=== PATIENT | female | born 1940 | race Caucasian/White ===

== ENCOUNTER 2019-01-19 14:27 | Inpatient (IN) | payer MEDICARE, BC ==
[~2019-01-19] VITALS: Ht 160 cm; Wt 73.5 kg
[~2019-01-19 14:27] MED LIST: APAP500 PO; ASPIR 8181 M1 PO; LOSARTAN POTAS100 MG PO; SIMVASTATIN40 MG PO; ZIAC 5-6.25 MG1 EACH PO
[2019-01-19 14:38] VITALS: BP 217/93
[2019-01-19 15:21] LABS: ABSOLUTE BASOPHILS 0.1 thou/uL (0.0-0.2); ABSOLUTE EOSINOPHILS 0.2 thou/uL (0.0-0.7); ABSOLUTE LYMPHOCYTES 1.7 thou/uL (0.8-5.3); ABSOLUTE MONOCYTES 0.5 thou/uL (0.0-1.2); ABSOLUTE NEUTROPHILS 4.6 thou/uL (1.6-8.1); EOSINOPHILS 2.7 %; HEMATOCRIT 36.1 % (37.0-47.0); HEMOGLOBIN 12.3 gm/dL (12.0-15.0); LYMPHOCYTES 24.2 %; MCH 32.6 pg (26.0-34.0); MCV 95.9 fL (80.0-100.0); MONOCYTES 6.7 %; MPV 9.1 fl. (7.2-11.1); NUCLEATED RBCS 0 /100WBC; PLATELET COUNT* 175 thou/uL (150-400); POLYS 65.4 %; RBC 3.77 mil/uL (4.20-5.00); RDW-CV 13.1 % (10.5-14.5); WBC 7.1 thou/uL (4.0-11.0)
[2019-01-19 15:25] LABS: APTT 21.7 Seconds (25.0-31.3); PROTIME 10.2 Seconds (9.20-11.50)
[2019-01-19 15:31] LABS: CALCIUM 9.8 mg/dL (8.5-10.1); CREATININE 1.3 mg/dL (0.6-1.3); POTASSIUM 4.3 mmol/L (3.5-5.1)
[2019-01-19 15:41] LABS: ALBUMIN 4.1 g/dL (3.4-5.0); TOTAL BILIRUBIN 0.4 mg/dL (<0.1-1.0); TOTAL PROTEIN 7.4 g/dL (6.4-8.2)
[2019-01-19 16:47] VITALS: BP 170/65
[2019-01-19 17:10] VITALS: BP 175/70
[2019-01-19 20:00] VITALS: BP 101/46
[2019-01-20] VITALS (14 sets, daily range): BP systolic 93–183; BP diastolic 41–77
[2019-01-20 04:48] LABS: CHOLESTEROL 158 mg/dL (<200); HDL CHOLESTEROL 79 mg/dL (>40); MAGNESIUM 1.8 mg/dL (1.8-2.4); PHOSPHORUS* 3.9 mg/dL (2.5-4.9)
[2019-01-20 04:51] LABS: SERUM ASSESSMENT CLEAR
[2019-01-20 05:57] LABS: LDL CHOLESTEROL 66 mg/dL (<100); TRIGLYCERIDE 68 mg/dL (<150); VLDL 14 mg/dL (<40)
[2019-01-20] MEDS ORDERED: NITROGLYCERIN0.4 MG SUBLING (14:51)
[2019-01-20] MEDS ORDERED: HYDROCHLOROTHIA25 M1 PO (14:52)
--- NOTE | 2019-01-20 17:04 | EKG ---
[place] [address] ELECTROCARDIOGRAM REPORT Name: JACIEL FLORES Room: [address] ADM IN M.R.#: [id number] Admission: 01/19/19 Attend Phys: Ana Lilia Asif Discharge: Date of : 40 Report #: [id number] THIS REPORT FOR: //name// [facility] ED Test Date: 2019-01-19 Test Time: 14:40:34 Pat Name: JACIEL FLORES Department: Room: [facility] Gender: F Security Threat Analyst: FELICITA : 1940 Requested By: Luiz Howard Order Number: [id number] MD: Chace Dacosta Measurements Intervals [place] Rate: 68 P: 74 MD: 216 QRS: -40 QRSD: 112 T: 51 QT: 385 QTc: 410 Interpretive Statements Sinus rhythm Atrial premature complex Borderline prolonged MD interval Left anterior fascicular block Abnormal R-wave progression, late transition Left ventricular hypertrophy No previous ECG available for comparison Electronically Signed On 01-20-2019 17:04:34 SALESPERSON HEARING AIDS by Chace Dacosta [email or web address] <ELECTRONICALLY SIGNED> By: Chace Dacosta MD, FACC 01/20/19 1704 1440 1440 Chace Dacosta MD, FAC /EPI
[2019-01-20 23:06] LABS: GLYCOHEMOGLOBIN (HGB A1C) 5.2 % (4.8-5.6)
[2019-01-21] VITALS (13 sets, daily range): BP systolic 84–159; BP diastolic 39–71
[2019-01-21 04:55] LABS: ABSOLUTE EOSINOPHILS 0.1 thou/uL (0.0-0.7); ABSOLUTE LYMPHOCYTES 1.9 thou/uL (0.8-5.3); ABSOLUTE MONOCYTES 0.5 thou/uL (0.0-1.2); ABSOLUTE NEUTROPHILS 5.5 thou/uL (1.6-8.1); BASOPHILS 0.4 %; EOSINOPHILS 1.2 %; HEMATOCRIT 30.7 % (37.0-47.0); LYMPHOCYTES 23.9 %; MCH 32.7 pg (26.0-34.0); MCHC 33.5 g/dL (28.0-37.0); MCV 97.7 fL (80.0-100.0); MONOCYTES 6.7 %; MPV 8.8 fl. (7.2-11.1); NUCLEATED RBCS 0 /100WBC; PLATELET COUNT* 147 thou/uL (150-400); POLYS 67.8 %; RBC 3.15 mil/uL (4.20-5.00); RDW-CV 13.3 % (10.5-14.5)
[2019-01-21 05:03] LABS: HEMOGLOBIN 10.3 gm/dL (12.0-15.0)
[2019-01-21 05:19] LABS: POTASSIUM 3.7 mmol/L (3.5-5.1)
--- NOTE | 2019-01-21 09:33 | EKG ---
[place] [address] ELECTROCARDIOGRAM REPORT Name: JACIEL FLORES Room: [address] ADM IN M.R.#: [id number] Admission: 01/20/19 Attend Phys: Ana Lilia Asif Discharge: Date of : 40 Report #: [id number] THIS REPORT FOR: //name// [facility] Test Date: 2019-01-20 Test Time: 20:23:43 Pat Name: JACIEL FLORES Department: Room: [address] Gender: F Substance Abuse Therapist: TONNY : 1940 Requested By: Ana Lilia Enriquez Order Number: [id number] Kun MD: Laz Newby Measurements Intervals [place] Rate: 71 P: 70 [place]: 206 QRS: -48 QRSD: 108 T: 1 QT: 398 QTc: 433 Interpretive Statements Sinus rhythm Left anterior fascicular block Abnormal R-wave progression, late transition Borderline T abnormalities, anterior leads Compared to ECG 01/19/2019 14:40:34 T-wave abnormality now present Atrial premature complex(es) no longer present Electronically Signed On 01-21-2019 9:33:11 BACK LINE COOK by Laz Newby [email or web address] <ELECTRONICALLY SIGNED> By: Laz Newby MD, FACC 01/21/19932 22 22 Laz Newby MD, FACC /EPI
--- NOTE | 2019-01-21 17:11 | EKG ---
[place] [address] ELECTROCARDIOGRAM REPORT Name: JACIEL FLORES Room: [address] ADM IN M.R.#: [id number] Admission: 01/20/19 Attend Phys: Ana Lilia Asif Discharge: Date of : 40 Report #: [id number] THIS REPORT FOR: //name// [facility] Test Date: 2019-01-21 Test Time: 11:36:26 Pat Name: JACIEL FLORES Department: Room: [address] Gender: F Service Observer Chief: RT : 1940 Requested By: Pedro Friedman Order Number: [id number] Kun MD: Laz Newby Measurements Intervals [place] Rate: 69 P: 74 [place]: 224 QRS: -47 QRSD: 111 T: 71 QT: 401 QTc: 430 Interpretive Statements Sinus rhythm Prolonged WI interval Left anterior fascicular block Nonspecific T-wave inversion Compared to ECG 01/20/2019 20:23:43 First degree AV block now present Left ventricular hypertrophy now present Early repolarization now present Electronically Signed On 01-21-2019 17:11:03 CHIEF SUPPLY CHAIN OFFICER by Laz Newby [email or web address] <ELECTRONICALLY SIGNED> By: Laz Newby MD, FACC 01/21/19 1711 1136 1136 Laz Newby MD, FACC /EPI
[2019-01-22] VITALS: BP 124/50
[2019-01-22 04:27] LABS: HEMOGLOBIN 9.1 gm/dL (12.0-15.0); MCH 32.7 pg (26.0-34.0); MCHC 33.8 g/dL (28.0-37.0); MCV 96.6 fL (80.0-100.0); MPV 8.8 fl. (7.2-11.1); RBC 2.79 mil/uL (4.20-5.00); RDW-CV 13.1 % (10.5-14.5); WBC 7.4 thou/uL (4.0-11.0)
[2019-01-22 04:54] LABS: ALBUMIN 2.9 g/dL (3.4-5.0); CALCIUM 8.6 mg/dL (8.5-10.1); POTASSIUM 3.6 mmol/L (3.5-5.1); TOTAL BILIRUBIN 0.5 mg/dL (<0.1-1.0); TOTAL PROTEIN 5.5 g/dL (6.4-8.2); TROPONIN-I LEVEL 0.1 ng/mL (<0.06)
[2019-01-22 08:00] VITALS: BP 155/73
[2019-01-22] MEDS ORDERED: FELODIPINE 5 MG5 M1 PO (09:50)
[2019-01-22] MEDS ORDERED: BRILINTA90 MG PO ×2 (09:50→12:25)
[2019-01-22] MEDS ORDERED: LIPITOR40 MG PO (09:50)
[2019-01-22] MEDS ORDERED: ATENOLOL 50MG T50 M1 PO (09:50)
[2019-01-22 10:00] VITALS: BP 132/54
[2019-01-22 11:29] VITALS: BP 128/61
[2019-01-22] MEDS ORDERED: NORVASC5 M1 PO (12:24)
[2019-01-22 12:37] VITALS: BP 132/54
[2019-01-22 12:55] VITALS: BP 132/54
--- NOTE | 2019-01-22 13:47 | EKG ---
[place] [address] ELECTROCARDIOGRAM REPORT Name: JACIEL FLORES Room: [address] ADM IN M.R.#: [id number] Admission: 01/20/19 Attend Phys: Ana Lilia Asif Discharge: Date of : 40 Report #: [id number] THIS REPORT FOR: //name// [facility] Test Date: 2019-01-22 Test Time: 08:42:23 Pat Name: JACIEL FLORES Department: Room: [address] Gender: F Account Development Manager: : 1940 Requested By: Pedro Friedman Order Number: [id number] Kun MD: Pedro Friedman Measurements Intervals [place] Rate: 71 P: 4 [place]: 195 QRS: -46 QRSD: 109 T: -4 QT: 402 QTc: 437 Interpretive Statements Sinus rhythm Left anterior fascicular block Abnormal R-wave progression, early transition LVH with secondary repolarization abnormality Compared to ECG 01/21/2019 11:36:26 Left ventricular hypertrophy now present Early repolarization now present First degree AV block no longer present Electronically Signed On 01-22-2019 13:46:56 SURFACER OPERATOR by Pedro Friedman [email or web address] <ELECTRONICALLY SIGNED> By: Pedro Friedman MD, FACC 01/22/19 1346 0842 0842 Pedro Friedman MD, FAC /EPI
--- NOTE | 2019-01-22 14:29 | CARD ---
[address] [address] CARDIAC CATH REPORT Name: JACIEL FLORES Room: [address] IN M.R.#: [id number] Admission: 01/20/19 Attend Phys: Ana Lilia [place] Discharge: Date of : 40 Report #: [id number] THIS REPORT FOR: //name// APPROVED REPORT Study performed: 01/20/2019 14:40:25 Patient Details Patient Status: In-Patient Room #: 215 The patient is a 78 year-old female Event Personnel Nelson Parham RTR Monitor, Pedro Friedman Facing End Trimmer, Fiona Rodriguez RTR Scrub, Cindi Morse RN RN, Diya Acuna RN warehouse shift supervisor Performed Left Heart Cath w/or w/o Coronaries [id number] [facility] Hemostasis with Manual pressure Indication Unstable angina Risk Factors Hypercholesterolemia, Hypertension Admission/Lab Medications/Medications given during procedure Fentanyl IV 25 mcg, Midazolam (Versed) IV 1 mg, Lidocaine Subcut 20 ml, Hydralazine (Apresoline) IV 10 mg, Half Normal Saline IV 200 ml per hr Procedure Narrative The patient was brought electively to the Cardiac Catheterization Laboratory and was prepped and draped in a sterile manner. The right femoral was infiltrated with 2% Lidocaine subcutaneous anesthesia. A 6fr Ultimum Sheath sheath was inserted into the right femoral artery. Coronary angiography was performed using coronary diagnostic catheters. The right coronary system was accessed and visualized with a Diagnostic 6Fr JR 4 catheter. The left coronary system was accessed and visualized with a Diagnostic 6Fr JL 4 catheter. The left ventricle was accessed and visualized with a Diagnostic 6Fr Pigtail catheter. Left ventriculogram was performed in RANGEL projection. Hemostasis was obtained with manual pressure following sheath removal without any complications. The patient tolerated the procedure well and there were no complications associated with the procedure. There was no hematoma. Patient [place] [address] CARDIAC CATH REPORT Name: JACIEL FLORES Room: [address] IN ..#: [id number] Admission: 01/20/19 Attend Phys: Ana Lilia Asif Discharge: Date of : 40 Report #: [id number] administration a total of 20 mg of hydralazine, she developed hypotension which gradually resolved after infusion of significant amounts of crystalloid. It was elected to terminate the procedure at this point and proceed with intervention to the LAD at a later date. Intraoperative Conscious Sedation Fentanyl 25 mcg Versed 1 mg Fluoro Time: 5.0 minutes Dose: DAP 02697 cGycm2 425.78 mGy Contrast Type and Amount: Visipaque 80 ml Diagnostic Cath Left Main 0% narrowing LAD 80% focal mid LAD stenosis Circumflex Dominant vessel with 0% narrowing Right Coronary Small nondominant vessel with 40% proximal narrowing Hemodynamics The aortic pressure is 163/66 mmHg with a mean of 52 mmHg. The left ventricular pressure is 164/-3 mmHg with a mean of mmHg. The left ventricular end diastolic pressure is 5 mmHg. There was no gradient across the aortic valve upon pullback. Conclusion #1 significant single-vessel coronary artery disease characterized by the following: A 80% focal mid LAD stenosis #2 moderate systemic systolic hypertension #3 systemic pressure became significantly elevated; she was given 20 mg of hydralazine sequentially in two doses and subsequently developed significant hypotension requiring crystalloid infusion for anglican of normal hemodynamics. Recommendations [place] [address] CARDIAC CATH REPORT Name: JACIEL FLORES Room: [address] IN M.R.#: [id number] Admission: 01/20/19 Attend Phys: Ana Lilia Asif Discharge: Date of : 40 Report #: [id number] Diagnostic Cath Approved by: Pedro Friedman MD Date/Time: 01/22/2019 14:28:29 <ELECTRONICALLY SIGNED> By: Pedro Friedman MD, [facility] 01/22/19 1429 1429 1429Pedro Friedman MD, FACC /INF
--- NOTE | 2019-01-22 14:49 | CARD ---
[address] [address] CARDIAC CATH REPORT Name: JACIEL FLORES Room: [address] IN M.R.#: [id number] Admission: 01/20/19 Attend Phys: Ana Lilia lira tracy Maier Discharge: 01/22/19 Date of : 40 Report #: [id number] THIS REPORT FOR: //name// APPROVED REPORT Study performed: 01/21/2019 09:29:33 Patient Details The patient is a 78 year-old female Event Personnel Pedro Friedman Title I Director, Nelson Parham RTR Monitor, Cindi Morse RN RN, Diya Acuna RN RN, Karl Prasad SKATE SHOP ATTENDANT Scrub Procedures Performed GUIDO Place w/wo Plasty Single LAD [id number] Hemostasis w/ Angioseal Indication Unstable angina Risk Factors Hypercholesterolemia, Hypertension Admission/Lab Medications/Medications given during procedure Angiomax bolus and infusion Procedure Narrative The patient was brought electively to the Cardiac Catheterization Laboratory and was prepped and draped in a sterile manner. The left femoral was infiltrated with 2% Lidocaine subcutaneous anesthesia. A 6fr Sheath sheath was inserted into the RFA. Coronary angiography was performed using coronary diagnostic catheters. The left coronary system was accessed and visualized with a JL4 6fr catheter. Pre-demployment femoral angiogram was performed . Closure device was deployed with a 6 Fr Angioseal. The patient tolerated the procedure well and there were no complications associated with the procedure. There was no hematoma. Intraoperative Conscious Sedation Sedation start time: 1008 Case end Time: 104 Fentanyl 100 mcg Dose: 570.55 [place] [address] CARDIAC CATH REPORT Name: JACIEL FLORES Room: [address] IN [facility].#: [id number] Admission: 01/20/19 Attend Phys: Ana Lilia lira [place] Discharge: 01/22/19 Date of : 40 Report #: [id number] Contrast Type and Amount: Visipaque 190 ml Diagnostic Cath Left Main 0% narrowing LAD 80% focal mid LAD stenosis Circumflex 0% narrowing Right Coronary Small nondominant vessel with mild proximal narrowing as defined by prior angiogram Hemodynamics The aortic pressure is 175/71 mmHg with a mean of 112 mmHg. PCI Technique Lesion Anticoagulation was achieved with Angiomax. Patient was preloaded with Angiomax IV 11 ml. Percutaneous coronary intervention was performed on the mid left anterior descending artery segment. The lesion stenosis prior to intervention was 80% with HERO 3 flow. A 6F XB LAD 3.5 Guide Catheter was used to engage the ostium. A IG: BMW 190cm Interventional Guidewire was used to cross the lesion. BALLOON DILATION A Balloon catheter NC Trek RX 3.0 X 8 was inserted and inflated up to 18.00atm for 21seconds. Additional Inflation: 22.00atm for 5seconds. STENT DEPLOYMENT A stent Xience Yanna 3.04W99ke was inserted and inflated up to 15.00atm for 11seconds. Additional Inflation: 16.00atm for 7seconds. Final angiography reveals 0 % stenosis with HERO 3 flow. Conclusion #1 moderate systemic systolic hypertension #2 significant single-vessel coronary artery disease with 80% mid LAD stenosis #3 successful percutaneous coronary intervention with deployment of a drug-eluting stent at site of 80% mid LAD stenosis with 0% residual narrowing and HERO-3 flow the distal vessel Recommendations Cardiac Risk Reduction Program [place] [address] CARDIAC CATH REPORT Name: JACIEL FLORES Room: [address] IN .R.#: [id number] Admission: 01/20/19 Attend Phys: Ana Lilia [place] Discharge: 01/22/19 Date of : 40 Report #: [id number] Medications Administered Aspirin (any) Ticagrelor Diagnostic Cath Approved by: Pedro Friedman MD Date/Time: 01/22/2019 14:47:31 <ELECTRONICALLY SIGNED> By: Pedro Friedman MD, [facility] 01/22/19 1448 1448 1448Joleigh Friedman MD, FACC /INF
== END 2019-01-22 14:48 | disposition home or self-care (01) | DRG 247 ==
LOC: M.ERS 14:27 → M.2W 16:15 → M.TBA-ER 16:15 → M.2W 16:15
PROVIDERS: Internal Medicine; Nurse Practitioner Psychiatric/Mental Health; ADMIT Family Medicine
PROC: B211YZZ Fluoroscopy of Multiple Coronary Arteries using Other Contrast (ICD-10-PCS; principal; 2019-01-20)
PROC: 4A023N7 Measurement of Cardiac Sampling and Pressure, Left Heart, Percutaneous Approach (ICD-10-PCS; principal; 2019-01-20)
PROC: B215YZZ Fluoroscopy of Left Heart using Other Contrast (ICD-10-PCS; principal; 2019-01-20)
PROC: B211YZZ Fluoroscopy of Multiple Coronary Arteries using Other Contrast (ICD-10-PCS; 2019-01-21)
PROC: B41FYZZ Fluoroscopy of Right Lower Extremity Arteries using Other Contrast (ICD-10-PCS; 2019-01-21)
PROC: 027034Z Dilation of Coronary Artery, One Artery with Drug-eluting Intraluminal Device, Percutaneous Approach (ICD-10-PCS; 2019-01-21)
PROC: 4A023N7 Measurement of Cardiac Sampling and Pressure, Left Heart, Percutaneous Approach (ICD-10-PCS; 2019-01-21)
DX: I25.110 Atherosclerotic heart disease of native coronary artery with unstable angina pectoris (principal); I16.1 Hypertensive emergency; E44.1 Mild protein-calorie malnutrition; I10 Essential (primary) hypertension; M17.0 Bilateral primary osteoarthritis of knee; M19.042 Primary osteoarthritis, left hand; M19.041 Primary osteoarthritis, right hand; E78.5 Hyperlipidemia, unspecified; E03.9 Hypothyroidism, unspecified; G89.4 Chronic pain syndrome; M19.90 Unspecified osteoarthritis, unspecified site; Z85.3 Personal history of malignant neoplasm of breast; Z79.899 Other long term (current) drug therapy; Z68.28 Body mass index [BMI] 28.0-28.9, adult; Z90.49 Acquired absence of other specified parts of digestive tract; Z90.11 Acquired absence of right breast and nipple

== ENCOUNTER → 2019-02-24 | Outpatient (CLI) | payer MEDICARE, BC ==
[~2019-02-24] MED LIST changes: +ATENOLOL 50MG T50 M1 PO; +BRILINTA90 MG PO; +FELODIPINE 5 MG5 M1 PO; +HYDROCHLOROTHIA25 M1 PO; +LIPITOR40 MG PO; +NITROGLYCERIN0.4 MG SUBLING; +NORVASC5 M1 PO
--- NOTE | 2019-02-24 15:13 | 2DMMODE ---
[place] [address] 2 D/M-MODE ECHOCARDIOGRAM Name: JACIEL FLORES Room: [facility]#: [id number] Admission: 02/24/19 Attend Phys: Vanita Jules RN Discharge: Date of : 40 Date of Service: 02/24/19 1513 Report #: [id number] THIS REPORT FOR: //name// APPROVED REPORT Study performed: 02/24/2019 13:43:31 EXAM: Comprehensive 2D, Doppler, and color-flow Echocardiogram Patient Location: Out-Patient BSA: 1.74 HR: 66 bpm BP: 120/68 mmHg Other Information Study Quality: Good Indications Dyspnea CAD 2D Dimensions IVSd: 9.90 (7-11mm) LVOT Diam: 20.25 (18-24mm) LVDd: 40.55 mm PWd: 10.02 (7-11mm) Ascending Ao: 33.63 (22-36mm) LVDs: 23.00 (25-40mm) Aortic Root: 25.52 mm Volumes Left Atrial Volume (Systole) LA ESV Index: 15.30 mL/m2 Aortic Valve AoV Peak Cruz.: 1.38 m/s AO Peak Gr.: 7.56 mmHg LVOT Max P.73 mmHg AO Mean Gr.: 4.07 mmHg LVOT Mean P.08 mmHg LVOT Max V: 1.09 m/s AO V2 VTI: 33.42 cm LVOT Mean V: 0.65 m/s JANET (VTI): 2.45 cm2 LVOT V1 VTI: 25.44 cm Mitral Valve E/A Ratio: 0.62 MV Decel. Time: 364.66 ms MV E Max Cruz.: 0.51 m/s MV PHT: 105.75 [place] [address] 2 D/M-MODE ECHOCARDIOGRAM Name: JACIEL FLORES Room: [facility]#: [id number] Admission: 02/24/19 Attend Phys: Vanita Jules RN Discharge: Date of : 40 Date of Service: 02/24/19 1513 Report #: [id number] MVA (PHT): 2.08 cm2 TDI E/Lateral E': 8.50 E/Medial E': 5.10 Medial E' Cruz.: 0.10 m/s Lateral E' Cruz.: 0.06 m/s Pulmonary Valve PV Peak Cruz.: 1.07 m/s PV Peak Gr.: 4.60 mmHg Tricuspid Valve RAP Estimate: 5.00 mmHg TR Peak Gr.: 20.45 mmHg RVSP: 25.45 mmHg PA Pressure: 25.45 mmHg Left Ventricle The left ventricle is normal size. There is normal LV segmental wall motion. There is normal left ventricular wall thickness. Left ventricular systolic function is normal. The left ventricular ejection fraction is within the normal range. LVEF is 55-60%. Grade I - abnormal relaxation pattern. Right Ventricle The right ventricle is normal size. The right ventricular systolic function is normal. Atria The left atrium size is normal. The right atrium size is normal. Aortic Valve Aortic valve is mildly calcified. No aortic regurgitation is present. There is no aortic valvular stenosis. Mitral Valve The mitral valve is normal in structure. Mild mitral regurgitation. No evidence of mitral valve stenosis. Tricuspid Valve The tricuspid valve is normal in structure. Mild tricuspid regurgitation. estimated pa pressure 30 mm Hg Pulmonic Valve The pulmonary valve is normal in structure. There is no pulmonic [place] [address] 2 D/M-MODE ECHOCARDIOGRAM Name: JACIEL FLORES Room: [facility]#: [id number] Admission: 02/24/19 Attend Phys: Vanita Jules RN Discharge: Date of : 40 Date of Service: 02/24/19 1513 Report #: [id number] Great Vessels The aortic root is normal in size. IVC is normal in size and collapses >50% with inspiration. Pericardium There is no pericardial effusion. <Conclusion> LVEF is 55-60%. Aortic valve is mildly calcified. <ELECTRONICALLY SIGNED> By: Chace Dacosta MD, FACC 02/24/19 1513 12 151 Chace Dacosta MD, FACC /INF
== END ==
LOC: M.CRD 02-17 10:00
DX: I08.3 Combined rheumatic disorders of mitral, aortic and tricuspid valves (principal)

== ENCOUNTER 2019-03-09 10:45 | Emergency (ER) | payer MEDICARE, BC ==
[~2019-03-09] VITALS: Ht 157.5 cm; Wt 73.5 kg
[2019-03-09] MEDS ORDERED: ATENOLOL 25 MG25 M1 PO (11:05)
[2019-03-09 11:25] VITALS: BP 145/76
== END 2019-03-09 11:26 | disposition home or self-care (01) ==
LOC: M.ERS 10:45
DX: H11.32 Conjunctival hemorrhage, left eye (principal); I10 Essential (primary) hypertension; Z90.49 Acquired absence of other specified parts of digestive tract; Z90.89 Acquired absence of other organs; M19.90 Unspecified osteoarthritis, unspecified site; Z98.890 Other specified postprocedural states

== ENCOUNTER 2019-09-21 13:29 | Emergency (ER) | payer MEDICARE, BC ==
[~2019-09-21] VITALS: Ht 160 cm; Wt 72.6 kg
[~2019-09-21 13:29] MED LIST changes: +ATENOLOL 25 MG25 M1 PO
[2019-09-21] MEDS ORDERED: CARBIDOPA-LEVO1 EACH PO (13:42)
[2019-09-21 14:06] LABS: ABSOLUTE BASOPHILS 0.1 thou/uL (0.0-0.2); ABSOLUTE EOSINOPHILS 0.3 thou/uL (0.0-0.7); ABSOLUTE LYMPHOCYTES 1.6 thou/uL (0.8-5.3); ABSOLUTE MONOCYTES 0.6 thou/uL (0.0-1.2); ABSOLUTE NEUTROPHILS 4.9 thou/uL (1.6-8.1); BASOPHILS 1.1 %; EOSINOPHILS 3.8 %; HEMATOCRIT 32.3 % (37.0-47.0); HEMOGLOBIN 11.2 gm/dL (12.0-15.0); MCHC 34.8 g/dL (28.0-37.0); MCV 97.7 fL (80.0-100.0); MONOCYTES 7.9 %; MPV 8.8 fl. (7.2-11.1); NUCLEATED RBCS 0 /100WBC; PLATELET COUNT* 177 thou/uL (150-400); POLYS 65.2 %; RBC 3.31 mil/uL (4.20-5.00); RDW-CV 13.8 % (10.5-14.5); WBC 7.5 thou/uL (4.0-11.0)
[2019-09-21 14:16] LABS: CALCIUM 9.2 mg/dL (8.5-10.1); CREATININE 1.2 mg/dL (0.6-1.3); POTASSIUM 3.9 mmol/L (3.5-5.1); PROTIME 10.6 Seconds (9.20-11.50)
[2019-09-21 14:20] LABS: ALBUMIN 3.9 g/dL (3.4-5.0); MAGNESIUM 1.8 mg/dL (1.8-2.4); TOTAL BILIRUBIN 0.5 mg/dL (<0.1-1.0)
[2019-09-21 14:54] LABS: BE -0.9 mmol/L (-2 to +3); PCO2 37.1 mmHg (35.0-45.0); PO2 95.8 mmHg (75.0-100.0); pH 7.416 (7.340-7.450)
[2019-09-21 15:07] LABS: URINE BILIRUBIN NEGATIVE (Negative); URINE BLOOD 1+ (Negative); URINE CLARITY CLEAR; URINE COLOR YELLOW; URINE GLUCOSE-RANDOM NEGATIVE (Negative); URINE KETONES NEGATIVE (Negative); URINE LEUKOCYTES-REFLEX NEGATIVE (Negative); URINE NITRITE-REFLEX NEGATIVE (Negative); URINE PROTEIN NEGATIVE (Negative); URINE SPECIFIC GRAVITY 1.015 (1.005-1.030); URINE UROBILINOGEN 0.2 E.U./dl (0.2-1.0)
[2019-09-21 15:14] LABS: BACTERIA-REFLEX 1-9 Few /HPF (None Seen); CASTS None Seen /LPF (None Seen); CRYSTALS None Seen /LPF (None Seen); SQUAMOUS 0-3 Few /LPF (0-3); URINE RBC 3-10 Few /HPF (0-2); URINE WBC-REFLEX 0-5 Rare /HPF (0-5)
[2019-09-21 17:19] VITALS: BP 185/63
[2019-09-21] MEDS ORDERED: ZOFRAN ODT4 MG PO (17:29)
[2019-09-21] MEDS ORDERED: XANAX 0.25 MG0.25 MG PO (17:29)
--- NOTE | 2019-09-22 11:19 | EKG ---
[place] [address] ELECTROCARDIOGRAM REPORT Name: JACIEL FLORES Room: [facility]#: [id number] Admission: 09/21/19 Attend Phys: Discharge: 09/21/19 Date of : 40 Date of Service: 09/21/19 1412 Report #: [id number] THIS REPORT FOR: //name// [facility] ED Test Date: 2019-09-21 Test Time: 14:12:56 Pat Name: JACIEL FLORES Department: Room: Gender: F Occupational Therapy Director: [facility] : 1940 Requested By: Annabel Moeller Order Number: [id number] MD: Chace Dacosta Measurements Intervals [place] Rate: 65 P: [place]: QRS: -40 QRSD: 121 T: 20 QT: 410 QTc: 427 Interpretive Statements sinus rhythm Nonspecific IVCD with LAD Left ventricular hypertrophy Compared to ECG 01/22/2019 08:42:23 no change Electronically Signed On 09-22-2019 11:19:29 CDT by Chace Dacosta [email or web address] <ELECTRONICALLY SIGNED> By: Chace Dacosta MD, [facility] 09/22/19 1119 1412 1412 Chace Dacosta MD, [facility] /EPI
== END 2019-09-21 17:15 | disposition home or self-care (01) ==
LOC: M.ERS 13:29
PROVIDERS: Personal Emergency Response Attendant
DX: R06.02 Shortness of breath (principal); Z20.828 Contact with and (suspected) exposure to other viral communicable diseases; I10 Essential (primary) hypertension; M19.90 Unspecified osteoarthritis, unspecified site; Z90.49 Acquired absence of other specified parts of digestive tract; Z90.89 Acquired absence of other organs; Z87.01 Personal history of pneumonia (recurrent); Z95.5 Presence of coronary angioplasty implant and graft

== ENCOUNTER → 2019-09-26 | Outpatient (CLI) | payer MEDICARE, BC ==
[~2019-09-26] MED LIST changes: +CARBIDOPA-LEVO1 EACH PO; +XANAX 0.25 MG0.25 MG PO; +ZOFRAN ODT4 MG PO
== END ==
LOC: M.ULTRA 09:58
PROVIDERS: ATTEND Internal Medicine
DX: R11.0 Nausea (principal); R10.9 Unspecified abdominal pain; R06.02 Shortness of breath; R14.2 Eructation

== ENCOUNTER 2019-11-13 12:26 | Inpatient (IN) | payer MEDICARE, BC ==
[~2019-11-13] VITALS: Ht 160 cm; Wt 75.3 kg
--- NOTE | ~2019-11-13 | CON ---
[address] [address] CONSULTATION Name: JACIEL FLORES Room: [address] Sarai Rivera#: [id number] Admission: 11/13/19 Attend Phys: Giacomo Strickland Discharge: Date of : 40 Report #: [id number] THIS REPORT FOR: //name// cc: Marshall Salvador MD, Christopher B. MD ~ THIS REPORT FOR: //name// CC: Marshall Rivera DATE OF SERVICE: 11/14/2019 HISTORY OF PRESENT ILLNESS: This is a 79-year-old male patient who was evaluated by me for Parkinson disease. The patient gives a history that she has been diagnosed with Parkinson disease by her family physician. She was having some tremor and some walking difficulty. He tried Sinemet, but she could not tolerate that. Then, she was given amantadine. She has become unsteady on her feet and later on during the examination, it looks like she does have a blank facies. She does not believe that tremor interferes with her daily activity that much. She can feed herself without spilling. She can dress herself, but she has trouble falling down. That history is also not very clear. She tends to feel a bit dizzy when she is upright. She does not know if her blood pressure changes. She does pass out for a few seconds. When she came here in fact, she was hypertensive. How often she is hypertensive is not clear either. REVIEW OF SYSTEMS: Positive for back problem. She apparently has a herniated disk. She had a tonsil surgery in the past and had a mastectomy. She had a partial removal of the thyroid. She had prior stent put in. She denies any prior history of stroke. She does not have any new eye, ENT, or cardiac. She does not have any GI, , new musculoskeletal, constitutional, dermatological, hematological, psychiatric, throat, allergic symptom associated with present symptomatology. PAST MEDICAL HISTORY: Positive for diagnosis of Parkinson's disease. It is not clear if she has any hypotension or not. FAMILY HISTORY: Noncontributory. SOCIAL HISTORY: She does not drink any alcohol. PHYSICAL EXAMINATION: Indicates she is alert. She is responsive. She is oriented. She can follow simple commands. Cranial nerve examination 2-12 looks unremarkable. She has a reasonable strength in all 4 extremities. Her position sense is intact. She can feel on both sides. She does tqlfki-[id number] and [facility] [address] [place] [address] CONSULTATION Name: JACIEL FLORES Room: [address] Sarai MFlakitaRFlakita#: [id number] Admission: 11/13/19 Attend Phys: Giacomo Strickland Discharge: Date of : 40 Report #: [id number] reasonably well. She has not been evaluated by physical therapy and I will let them evaluate her to see how stable she is. Her tone looks symmetrical. I could not look at the fundus. She is moderately built individual. She does not have any dysmorphic features of eyes, ears and face. She does not have any spasticity in the lower extremities. Cardiac examinations appear unremarkable. No respiratory difficulty or rhonchi was noticed. Blood pressure is 138/57, respirations 16, pulse is 84, temperature is 98.6. LABORATORY DATA: White count is 7.2. Imaging study indicate that CT of the head appears unremarkable. IMPRESSION: This patient does have some features of Parkinson's disease. She does have blank facies. We need to await the PT to see what kind of problem she has with the walking difficulty. I do not think all her problem can be attributed to her Parkinson disease, but that is possible. I will get an MRI of the brain and C-spine and see what it shows. I will get a TSH and vitamin B12 level. If we have to try Sinemet, we can try on a smaller dosages. Main thing, we will see how she does with physical therapy when she walks. I discussed all of it with the patient and she wants to follow this plan. Thank you very much for this referral. By: 1540 1656Rancho Ornelas MD /gerard
[~2019-11-13 12:26] MED LIST changes: -APAP500 PO; +TYLENOL EXTRA500 MG PO
[2019-11-13 12:39] VITALS: BP 207/82
[2019-11-13] MEDS ORDERED: PLAVIX 75 MG TA75 MG PO (12:49)
[2019-11-13] MEDS ORDERED: AMANTADINE100 M1 PO (12:49)
[2019-11-13 14:08] LABS: ABSOLUTE BASOPHILS 0.1 thou/uL (0.0-0.2); ABSOLUTE EOSINOPHILS 0.2 thou/uL (0.0-0.7); ABSOLUTE LYMPHOCYTES 1.6 thou/uL (0.8-5.3); ABSOLUTE MONOCYTES 0.6 thou/uL (0.0-1.2); ABSOLUTE NEUTROPHILS 4.8 thou/uL (1.6-8.1); BASOPHILS 1.3 %; EOSINOPHILS 3.1 %; HEMATOCRIT 36.8 % (37.0-47.0); HEMOGLOBIN 12.8 gm/dL (12.0-15.0); MCHC 34.6 g/dL (28.0-37.0); MCV 98.2 fL (80.0-100.0); MONOCYTES 7.8 %; MPV 8.7 fl. (7.2-11.1); NUCLEATED RBCS 0 /100WBC; PLATELET COUNT* 164 thou/uL (150-400); POLYS 65.8 %; RBC 3.75 mil/uL (4.20-5.00); RDW-CV 13.3 % (10.5-14.5); WBC 7.2 thou/uL (4.0-11.0)
[2019-11-13 14:16] LABS: CALCIUM 9.7 mg/dL (8.5-10.1); CREATININE 1.5 mg/dL (0.6-1.3); POTASSIUM 4.3 mmol/L (3.5-5.1)
[2019-11-13 14:21] LABS: ALBUMIN 4.2 g/dL (3.4-5.0); TOTAL BILIRUBIN 0.5 mg/dL (<0.1-1.0); TOTAL PROTEIN 7.8 g/dL (6.4-8.2)
[2019-11-13 15:02] LABS: URINE BILIRUBIN NEGATIVE (Negative); URINE BLOOD 1+ (Negative); URINE CLARITY CLEAR; URINE COLOR YELLOW; URINE GLUCOSE-RANDOM NEGATIVE (Negative); URINE KETONES NEGATIVE (Negative); URINE LEUKOCYTES-REFLEX NEGATIVE (Negative); URINE NITRITE-REFLEX NEGATIVE (Negative); URINE PROTEIN NEGATIVE (Negative); URINE SPECIFIC GRAVITY <= 1.005 (1.005-1.030); URINE UROBILINOGEN 0.2 E.U./dl (0.2-1.0)
[2019-11-13 15:16] LABS: BACTERIA-REFLEX 1-9 Few /HPF (None Seen); CASTS None Seen /LPF (None Seen); CRYSTALS None Seen /LPF (None Seen); SQUAMOUS 0-3 Few /LPF (0-3); URINE RBC 0-2 Rare /HPF (0-2); URINE WBC-REFLEX 0-5 Rare /HPF (0-5)
[2019-11-13 15:24] LABS: APTT 26.3 Seconds (25.0-31.3); PROTIME 10.4 Seconds (9.20-11.50)
--- NOTE | 2019-11-13 16:06 | EKG ---
[place] [address] ELECTROCARDIOGRAM REPORT Name: JACIEL FLORES Room: [facility]#: [id number] Admission: 11/13/19 Attend Phys: Discharge: Date of : 40 Date of Service: 11/13/19 1235 Report #: [id number] THIS REPORT FOR: //name// [facility] ED Test Date: 2019-11-13 Test Time: 12:35:22 Pat Name: JACIEL FLORES Department: Room: Gender: F Stock Manager: [place] : 1940 Requested By: Annabel Moeller Order Number: [id number] MD: Chace Dacosta Measurements Intervals [place] Rate: 62 P: -23 [place]: 209 QRS: -46 QRSD: 116 T: 8 QT: 412 QTc: 419 Interpretive Statements Sinus rhythm LVH with IVCD, LAD and secondary repol abnrm Compared to ECG 09/21/2019 14:12:56 no change Electronically Signed On 11-13-2019 16:06:26 CDT by Chace Dacosta [email or web address] <ELECTRONICALLY SIGNED> By: Chace Dacosta MD, [facility] 11/13/19 1606 1235 1235 Chace Dacosta MD, [facility] /EPI
[2019-11-13 20:15] VITALS: BP 158/59
[2019-11-13 20:42] VITALS: BP 125/61
[2019-11-14] VITALS: BP 180/84
[2019-11-14 04:00] VITALS: BP 157/70
--- NOTE | 2019-11-14 04:47 | NUR ---
PT ARRIEVED TO FLOOR APPROX 1999. AO X4, RA, VSS. SHE STATES SHE FELT FUNNY IN HER HEAD TODAY AND WOKE UP ON THE FLOOR, SHE STATES SHE HAS SOME PAIN OR STRAIN TO HER NECK AND HAS A HEADACHE, CT HEAD WAS NEG FOR ACUTE PROCESS. BP HAS BEEN A BIT ELEVATED, SHE DENIES ANY CHEST PAIN. PT AMBULATED TO BATHROOM WITH ASSIST X1 AND WAS VERY UNSURE OF HERSELF BEING VERY CAUTIOUS. A WALKER WAS PROVIDED FOR HER SAFETY. PT STATES SHE IS NOT AN ESTABLISHED PT OF A NEUROLOGIST AT THIS TIME. SHE STATES SHE LIVES AT HOME WITH HER AND SHE HAS SEVERAL STAIRS IN HER HOME WHERE THE BEDROOMS ARE LOCATED. MEDS WERE CALLED TO [facility] AND ADMINISTERED TO PT WELL TYLENOL FOR HEAD/NECK PAIN. NEURO CONSULT CALLED TO ANSWERING SERVICE
[2019-11-14 08:00] VITALS: BP 140/83
[2019-11-14 12:00] VITALS: BP 138/57
--- NOTE | 2019-11-14 12:43 | NUR ---
Pt is A&O. Resides at home with . Independent. No DME. No hx of HH or SNF. Goal is home at dc, no needs anticipated.
--- NOTE | 2019-11-14 13:30 | NUR ---
ASSUMED CARE OF PATIENT THIS AM AT 0730. PATIENT IS ALERT AND ORIENTED X 4. SHE C/O A PEOPLES THIS AM. TELE SHOWS SR WITH 1DAVB AND BBB. PATIENT WAS MEDICATED FOR PAIN X 1 WITH STATED RELIEF. PATIENT HAS BEEN UP TO THE BATHROOM WITH STANDBY ASSIST. NO FALLS OR INJURY. WILL CONTINUE TO MONITOR.
--- NOTE | 2019-11-14 17:05 | 2DMMODE ---
[place] [address] 2 D/M-MODE ECHOCARDIOGRAM Name: JACIEL FLORES Room: [address] Sarai Rivera#: [id number] Admission: 11/13/19 Attend Phys: Saritha Rivera Discharge: Date of : 40 Date of Service: 11/14/19 1705 Report #: [id number] THIS REPORT FOR: cc: Marshall Salvador MD, Christopher B. MD Blick, David R. MD [facility] ~ APPROVED REPORT Study performed: 11/14/2019 14:36:59 EXAM: Comprehensive 2D, Doppler, and color-flow Echocardiogram Patient Location: In-Patient Room #: [facility] Status: routine BSA: 1.77 HR: 63 bpm BP: 138/57 mmHg Rhythm: NSR Other Information Study Quality: Good Indications Dyspnea Syncope 2D Dimensions IVSd: 10.76 (7-11mm) LVOT Diam: 20.23 (18-24mm) LVDd: 44.38 mm PWd: 8.31 (7-11mm) Ascending Ao: 27.32 (22-36mm) LVDs: 24.48 (25-40mm) Aortic Root: 28.00 mm Volumes Left Atrial Volume (Systole) LA ESV Index: 32.80 mL/m2 Aortic Valve AoV Peak Cruz.: 1.27 m/s AO Peak Gr.: 6.46 mmHg LVOT Max P.64 mmHg AO Mean Gr.: 3.17 mmHg LVOT Mean P.89 mmHg LVOT Max V: 0.95 m/s AO V2 VTI: 27.00 cm LVOT Mean V: 0.63 m/s JANET (VTI): 2.85 cm2 LVOT V1 VTI: 23.94 [place] [address] 2 D/M-MODE ECHOCARDIOGRAM Name: JACIEL FLORES Room: [address] M.R.#: [id number] Admission: 11/13/19 Attend Phys: Saritha Rivera Discharge: Date of : 40 Date of Service: 11/14/19 1705 Report #: [id number] Mitral Valve E/A Ratio: 0.69 MV Decel. Time: 327.37 ms MV E Max Cruz.: 0.66 m/s MV PHT: 94.94 ms MVA (PHT): 2.32 cm2 TDI E/Lateral E': 7.33 E/Medial E': 9.43 Medial E' Cruz.: 0.07 m/s Lateral E' Cruz.: 0.09 m/s Pulmonary Valve PV Peak Cruz.: 1.15 m/s PV Peak Gr.: 5.31 mmHg Tricuspid Valve RAP Estimate: 5.00 mmHg TR Peak Gr.: 22.37 mmHg RVSP: 27.00 mmHg PA Pressure: 27.00 mmHg Left Ventricle The left ventricle is normal size. There is normal LV segmental wall motion. There is normal left ventricular wall thickness. Left ventricular systolic function is normal. The left ventricular ejection fraction is within the normal range. LVEF is 60-65%. Grade I - abnormal relaxation pattern. Right Ventricle The right ventricle is normal size. The right ventricular systolic function is normal. Atria Left atrium is mildly dilated. The right atrium size is normal. Aortic Valve The aortic valve is normal in structure. No aortic regurgitation is present. There is no aortic valvular stenosis. Mitral Valve The mitral valve is normal in structure. Trace mitral regurgitation. No evidence of mitral valve stenosis. Tricuspid Valve The tricuspid valve is normal in structure[place] [address] 2 D/M-MODE ECHOCARDIOGRAM Name: JACIEL FLORES Room: [address]#: [id number] Admission: 11/13/19 Attend Phys: Saritha Rivera Discharge: Date of : 40 Date of Service: 11/14/19 1705 Report #: [id number] regurgitation. No pulmonary hypertension. Pulmonic Valve The pulmonary valve is normal in structure. There is no pulmonic valvular regurgitation. Great Vessels The aortic root is normal in size. IVC is normal in size and collapses >50% with inspiration. Pericardium There is no pericardial effusion. <Conclusion> LVEF is 60-65%. Left atrium is mildly dilated. <ELECTRONICALLY SIGNED> By: Chace Dacosta MD, [facility] 11/14/191704 04 04 Chace Dacosta MD, FACC /INF
[2019-11-14 18:12] VITALS: BP 162/76
[2019-11-14 20:00] VITALS: BP 148/62
[2019-11-15] VITALS (8 sets, daily range): BP systolic 106–170; BP diastolic 59–88
--- NOTE | 2019-11-15 05:20 | NUR ---
ASSESSMENTS COMPLETED AT BEDSIDE, PLEASE REFER TO CHARTING FOR DETAILS. MEDICATIONS ADMINISTERED PER MAY. PT HAD REPORT OF HEADACHE AT START OF SHIFT AND WAS TREATED WITH PRN MEDICATIONS WITH COMPLETE RELIEF. PT REPORTED NO EPISODES OF DIZZINESS. HOURLY ROUNDING IN PLACE FOR SAFETY, BED ALARM ON AND CALL LIGHT WITHIN REACH.
--- NOTE | 2019-11-15 18:29 | NUR ---
pt has remained alert, oriented x 4. skin warm and dry. no c/o pain. seen by cardiology today. adjustments made to antihypertensives and med to treat parkinsons. resting quietly at this time. daughter at bedside. pt still needs ua collected to determine specific gravity
[2019-11-16] VITALS: BP 119/56; BP 168/75; BP 169/80
[2019-11-16 01:28] LABS: URINE BILIRUBIN NEGATIVE (Negative); URINE BLOOD TRACE (Negative); URINE CLARITY CLEAR; URINE COLOR STRAW; URINE GLUCOSE-RANDOM NEGATIVE (Negative); URINE KETONES NEGATIVE (Negative); URINE LEUKOCYTES NEGATIVE (Negative); URINE NITRITE NEGATIVE (Negative); URINE PROTEIN NEGATIVE (Negative); URINE SPECIFIC GRAVITY <= 1.005 (1.005-1.030); URINE UROBILINOGEN 0.2 E.U./dl (0.2-1.0)
[2019-11-16 04:00] VITALS: BP 170/70
--- NOTE | 2019-11-16 06:15 | NUR ---
ASSESSMENTS COMPLETED AT BEDSIDE, PLEASE REFER TO CHARTING FOR DETAILS. MEDICATIONS ADMINISTERED PER MAR. HOURLY ROUNDING FOR PT SAFETY. ALL NEEDS HAVE CURRENTLY BEEN MET. PT ASLEEP IN BED WITH BED ALARM ON AND CALL LIGHT WITHIN REACH.
[2019-11-16 08:00] VITALS: BP 163/70
[2019-11-16 13:02] VITALS: BP 113/59
[2019-11-16 16:00] VITALS: BP 125/58
--- NOTE | 2019-11-16 18:54 | NUR ---
PT HAS REMAINED ALERT, ORIENTED X 4 AND COOPERATIVE WITH STAFF. NO C/O OR INDICATION OF PAIN OR DISTRESS. REMAINS FALL RISK. ABLE TO AMBULATE SAFELY WITH GAIT BELT, WALKER AND 1 PERSON ASSIST. PT HAS BEEN UP IN CHAIR MAJORITY OF SHIFT. POTENTIAL FOR DISMISSAL TOMORROW
[2019-11-16 19:35] VITALS: BP 145/57
[2019-11-17] VITALS (10 sets, daily range): BP systolic 97–172; BP diastolic 47–72
--- NOTE | 2019-11-17 02:18 | NUR ---
ASSUMED CARE OF PT AT 1900. PT IS ALERT AND ORIENTED. VSS. PERRLA. NO COMPLAINTS OF PAIN. PT IS IN SINUS RYTHM ON THE TELEMETRY. PT IS RESTING COMFORTABLY IN BED. RESPIRATIONS ARE EVEN AND NONLABORED. WILL CONTINUE TO MONITOR PT.
[2019-11-17] MEDS ORDERED: NORVASC5 MG PO (10:25)
[2019-11-17] MEDS ORDERED: ATENOLOL 25 MG25 M1 PO (10:25)
--- NOTE | 2019-11-17 13:18 | NUR ---
Pt discharging home today with [facility], faxed dc orders. CM faxed rollator walker rx to Mishel at [facility], awaiting delivery. Family supportive and to be available to Pt at home post dc.
--- NOTE | 2019-11-17 15:01 | CON ---
[address] [address] CONSULTATION Name: JACIEL FLORES Room: [address] ADM IN M.R.#: [id number] Admission: 11/16/19 Attend Phys: Giacomo Strickland Discharge: Date of : 40 Report #: [id number] THIS REPORT FOR: //name// cc: Marshall Salvador MD, Christopher B. MD ~ THIS REPORT FOR: //name// CC: MARSHALL Rivera DATE OF SERVICE: 11/14/2019 CARDIOLOGY CONSULTATION HISTORY OF PRESENT ILLNESS: The patient is a 79-year-old white female who I was asked to see in the hospital after she had a syncopal spell. The patient has an extensive past medical history. She actually presented in 01/2019 with shortness of breath. She was seen by my partner, Dr. Pedro Friedman. She had a coronary artery stent placed. She was placed on Brilinta and aspirin. Unfortunately, she continues to be short of breath and Dr. Friedman switched her from Brilinta to Plavix. She is not very active at this time. She does have a tremor. She recently was diagnosed with Parkinson's disease. Apparently a week ago, she was at home, she felt lightheaded and fell to the ground. Two days ago, she is also at home after lunch, got up and felt lightheaded and fell to the ground. Her brought her to the hospital. She was admitted. Cardiology consultation requested. She denies recent chest pain, fever, cough, palpitations, seizure activity, vomiting or bleeding. PAST MEDICAL HISTORY: She had a mastectomy for breast cancer followed by chemotherapy. She had back surgery, appendectomy, tonsillectomy. She has a history of hypertension, hyperlipidemia. MEDICATIONS: Include amlodipine, aspirin, atenolol, Lipitor, Plavix, hydrochlorothiazide, losartan. ALLERGIES: SHE HAS A PREVIOUS INTOLERANCE TO ____. FAMILY HISTORY: Her grandfather had a stroke. SOCIAL HISTORY: She is . She and her live in [place], [place]. Nonsmoker. No alcohol abuse. REVIEW OF SYSTEMS: There is no history of stroke, asthma, liver disease, kidney disease, chronic [place] [address] CONSULTATION Name: JACIEL FLORES Room: [address]#: [id number] Admission: 11/16/19 Attend Phys: Giacomo Strickland Discharge: Date of : 40 Report #: [id number] PHYSICAL EXAMINATION: GENERAL: Revealed an elderly frail appearing female, lying in bed. She appeared in no distress. VITAL SIGNS: She had a blood pressure of 140/80, pulse 60. She was afebrile. HEENT: She was anicteric. Conjunctivae are pink. Mucous membranes appear dry. NECK: Veins do not appear distended. No carotid bruits. CHEST: Clear to auscultation. CARDIOVASCULAR: Regular rate and rhythm. ABDOMEN: Soft. EXTREMITIES: Had no edema. Dorsalis pedis pulse cannot be palpated. SKIN: Cool and dry. NEUROLOGIC: Nonfocal. LABORATORY DATA: ECG on admission showed sinus rhythm, left ventricular hypertrophy, repolarization changes. She had an echocardiogram done last February that showed normal left ventricular function with aortic sclerosis. Her chest x-ray on admission showed normal heart size and clear lung naranjo. She had a CT scan of the head performed that was noncontrast that showed no acute abnormality. She had lab work, sodium 136, creatinine 1.5. Liver function studies were normal. Troponin 0.06. TSH 1.7 in September. Her white blood cell count 7.2, hemoglobin 12.8. IMPRESSION AND RECOMMENDATIONS: 1. History of falls. No evidence of arrhythmia. Possible orthostatic hypotension from Parkinson's disease. No history to suggest seizure. I would avoid dehydration. 2. Coronary artery disease. Previous stent. The patient is on Plavix. 3. Hypertension. The patient is on a calcium dayanna, beta dayanna, diuretic and ARB. 4. Hyperlipidemia. The patient is on a statin drug. 5. Parkinson's disease. Possible orthostatic hypotension. 6. History of breast cancer. <ELECTRONICALLY SIGNED> By: Chace Dacosta MD, FACC 11/17/19 1501 1602 [id number] Dacosta MD, FACC /nt
--- NOTE | 2019-11-17 18:00 | NUR ---
RECEIVED REPORT. ASSUMED CARE OF PT AROUND 0730. PT A&O X4. AM ASSESSMENT AND VITALS COMPLETED CHARTED. MEDS PER EMAR. MANUFACTURING EXECUTIVE IN PLACE. DAUGHTER AT BEDSIDE THROUGHOUT VISITING HOURS TODAY. ORTHOSTATIC BPS TAKEN - WERE POSITIVE. DC HELD. PT VERY TEARFUL AND UPSET ABOUT NOT GETTING TO GO HOME TODAY. REASSURANCE GIVEN. APPETITE GOOD. THERAPIES DID NOT ROUND ON PT TODAY. PT CURRENTLY SITTING UP IN BEDSIDE CHAIR. FALL PRECAUTIONS IN PLACE. CALL LIGHT IS WITHIN REACH. HOURLY ROUNDING PERFORMED.
[2019-11-18] VITALS (8 sets, daily range): BP systolic 122–177; BP diastolic 59–74
--- NOTE | 2019-11-18 06:03 | NUR ---
OVERALL PT HAD A GOOD SHIFT, SHE WAS TEARFUL AND SAD IN THE BEGINING, HER DAUGHTER WAS AT BEDSIDE AND LATER SHE DID A GROUP CALL WITH OTHER FAMILY. PT IS VERY RIGID IN POSTURE, SHE IS AFRAID OF FALLING AND IS VERY UNSTEADY ON HER FEET. SHE LOOKS TO THE FLOOR MOST OF THE TIME AND NEARLY FELL TWICE THIS SHIFT. SHE IS USING BSC BECAUSE SHE IS AFRAID TO SIT TOO LOW TO THE GROUND ON THE STOOL AND NOT BE ABLE TO GET UP. PT IS STILL COMPLAINING OF HEADACHE IN OCCIPITAL REGION OF HEAD FOR WHICH SHE HAS TAKEN TYLENOL WITH SOME RELIEF. SHE IS ANTICIPATING GOING HOME TODAY. TM
--- NOTE | 2019-11-18 09:26 | NUR ---
Pt dc delayed yesterday d/t positive orthostatics. Plan dc to home today, CM to updated [facility] [place]. Acute rehab consult placed yesterday, family declining. Plan home with . CM to update
[2019-11-19] VITALS (8 sets, daily range): BP systolic 100–164; BP diastolic 39–68
[2019-11-19 04:49] LABS: HEMATOCRIT 28.9 % (37.0-47.0); HEMOGLOBIN 10.2 gm/dL (12.0-15.0); MCH 33.9 pg (26.0-34.0); MCHC 35.1 g/dL (28.0-37.0); MCV 96.8 fL (80.0-100.0); MPV 9.1 fl. (7.2-11.1); RBC 2.99 mil/uL (4.20-5.00); RDW-CV 12.9 % (10.5-14.5); WBC 5.9 thou/uL (4.0-11.0)
--- NOTE | 2019-11-19 05:54 | NUR ---
ASSUMED CARE OF PT AFTER REPORT AT 1930. PT A&OX4. VSS. PHYSICAL ASDSESSMENT COMPLETED AND CHARTED. PT ON RA. PT TRACING SR/1ST DEG/BBB ON TELE. PT UP WITH 1 ASSIST TO BSC. PT COMPLAINED OF HEADACHE-MED GIVEN PER MAR. FALL PRECAUTIONS IN PLACE. CALL LIGHT IN PLACE.
[2019-11-19] MEDS ORDERED: MIDODRINE HCL 55 M1 PO (09:12)
--- NOTE | 2019-11-19 11:25 | NUR ---
CM spoke with Pt and dtr in room, Pt now wanting acute rehab. CM updated rehabilitation case coordinator, therapies to see today. Dr Madera or COOK SAUCE to assess. Await decision for ARU, if no ARU, plan is home with HH. Following.
--- NOTE | 2019-11-19 15:09 | NUR ---
Pt discharging to ARU today to room 322. Updated Pt and dtr in room. Faxed dc orders.
--- NOTE | 2019-11-19 18:18 | NUR ---
PT IS GOING TO REHAB IN ROOM 322 NO CONCERNS AT THIS TIME PT IS STABLE DTR WITH PT
== END 2019-11-19 18:44 | DRG 312 ==
LOC: M.ERS 12:26 → M.2W 16:50 → M.TBA-ER 16:50 → M.2W 16:50
PROVIDERS: Internal Medicine; Personal Emergency Response Attendant; ADMIT Internal Medicine; ATTEND Internal Medicine
DX: I95.1 Orthostatic hypotension (principal); N39.0 Urinary tract infection, site not specified; R65.10 Systemic inflammatory response syndrome (SIRS) of non-infectious origin without acute organ dysfunction; G20 Parkinson's disease; I12.9 Hypertensive chronic kidney disease with stage 1 through stage 4 chronic kidney disease, or unspecified chronic kidney disease; N18.3 Chronic kidney disease, stage 3 (moderate); M19.90 Unspecified osteoarthritis, unspecified site; R06.00 Dyspnea, unspecified; I16.0 Hypertensive urgency; I25.10 Atherosclerotic heart disease of native coronary artery without angina pectoris; E78.5 Hyperlipidemia, unspecified; F02.80 Dementia in other diseases classified elsewhere, unspecified severity, without behavioral disturbance, psychotic disturbance, mood disturbance, and anxiety; Z20.828 Contact with and (suspected) exposure to other viral communicable diseases; Z90.11 Acquired absence of right breast and nipple; Z85.3 Personal history of malignant neoplasm of breast; Z95.5 Presence of coronary angioplasty implant and graft; Z79.82 Long term (current) use of aspirin; Z79.01 Long term (current) use of anticoagulants; Z79.899 Other long term (current) drug therapy; Z90.49 Acquired absence of other specified parts of digestive tract; Z87.01 Personal history of pneumonia (recurrent)

== ENCOUNTER 2019-11-19 15:45 | Inpatient (IN) | payer MEDICARE, BC ==
[~2019-11-19] VITALS: Ht 160 cm; Wt 72.9 kg
[~2019-11-19 15:45] MED LIST changes: +AMANTADINE100 M1 PO; +MIDODRINE HCL 55 M1 PO; +NORVASC5 MG PO; +PLAVIX 75 MG TA75 MG PO
[2019-11-19 20:00] VITALS: BP 127/58
[2019-11-20 03:41] LABS: HEMATOCRIT 29.6 % (37.0-47.0); HEMOGLOBIN 10.4 gm/dL (12.0-15.0); MCH 34.1 pg (26.0-34.0); MCHC 35.1 g/dL (28.0-37.0); MCV 97.3 fL (80.0-100.0); MPV 8.9 fl. (7.2-11.1); RBC 3.04 mil/uL (4.20-5.00); RDW-CV 13.2 % (10.5-14.5); WBC 5.8 thou/uL (4.0-11.0)
[2019-11-20 04:02] LABS: CALCIUM 9.2 mg/dL (8.5-10.1); CREATININE 1.1 mg/dL (0.6-1.3); POTASSIUM 3.7 mmol/L (3.5-5.1)
[2019-11-20 08:00] VITALS: BP 131/60; BP 168/74; BP 180/70
[2019-11-20 20:13] VITALS: BP 143/67
[2019-11-21] VITALS (7 sets, daily range): BP systolic 83–172; BP diastolic 44–79
[2019-11-22 08:00] VITALS: BP 137/70; BP 69/42
[2019-11-22 10:00] VITALS: BP 115/60; BP 187/84; BP 191/78
[2019-11-22 20:00] VITALS: BP 173/91
[2019-11-22 20:30] VITALS: BP 112/53
[2019-11-23 08:19] VITALS: BP 182/79
[2019-11-23 08:20] VITALS: BP 149/66
[2019-11-23 08:21] VITALS: BP 86/43
[2019-11-23 20:00] VITALS: BP 158/71
[2019-11-23 20:15] VITALS: BP 97/51
[2019-11-24 03:29] LABS: HEMATOCRIT 30.3 % (37.0-47.0); HEMOGLOBIN 10.7 gm/dL (12.0-15.0); MCH 34.1 pg (26.0-34.0); MCHC 35.2 g/dL (28.0-37.0); MCV 96.9 fL (80.0-100.0); MPV 8.6 fl. (7.2-11.1); RBC 3.13 mil/uL (4.20-5.00); WBC 7.2 thou/uL (4.0-11.0)
[2019-11-24 03:56] LABS: CALCIUM 9.3 mg/dL (8.5-10.1); CREATININE 1.6 mg/dL (0.6-1.3); POTASSIUM 4.5 mmol/L (3.5-5.1)
[2019-11-24 07:45] VITALS: BP 192/76
[2019-11-24 13:50] VITALS: BP 122/65
[2019-11-24 20:00] VITALS: BP 179/72
[2019-11-25 08:00] VITALS: BP 191/85
[2019-11-25 08:01] VITALS: BP 183/75
[2019-11-25 08:03] VITALS: BP 101/43
[2019-11-25 19:00] VITALS: BP 163/69
[2019-11-25 19:02] VITALS: BP 148/63
[2019-11-25 19:04] VITALS: BP 78/44
[2019-11-26 08:00] VITALS: BP 189/78
[2019-11-26 11:21] VITALS: BP 144/60; BP 152/63; BP 76/42
[2019-11-26 20:09] VITALS: BP 197/85
[2019-11-26 23:15] VITALS: BP 158/80
[2019-11-26 23:16] VITALS: BP 71/37
[2019-11-27 08:00] VITALS: BP 101/53; BP 192/87; BP 228/87
[2019-11-27 20:11] VITALS: BP 126/59
[2019-11-27 23:40] VITALS: BP 109/46
[2019-11-28 08:04] VITALS: BP 201/92
[2019-11-28 08:05] VITALS: BP 108/69
[2019-11-28 20:17] VITALS: BP 174/79
[2019-11-28 20:19] VITALS: BP 97/65
[2019-11-29 07:00] VITALS: BP 201/88
[2019-11-29 07:02] VITALS: BP 199/89
[2019-11-29 07:04] VITALS: BP 127/81
[2019-11-29 21:00] VITALS: BP 138/54
[2019-11-29 21:05] VITALS: BP 175/90
[2019-11-29 21:10] VITALS: BP 117/43
[2019-11-30] VITALS (7 sets, daily range): BP systolic 96–170; BP diastolic 41–78
[2019-12-01 07:45] VITALS: BP 123/68; BP 140/71; BP 172/84
[2019-12-01 19:30] VITALS: BP 168/72
[2019-12-02 08:00] VITALS: BP 193/86
[2019-12-02 08:05] VITALS: BP 178/81
[2019-12-02 08:10] VITALS: BP 126/68
[2019-12-02 19:00] VITALS: BP 150/76
[2019-12-02 19:02] VITALS: BP 134/58
[2019-12-03 04:24] LABS: CALCIUM 9.2 mg/dL (8.5-10.1); CREATININE 1.3 mg/dL (0.6-1.3)
[2019-12-03 04:39] LABS: HEMATOCRIT 27.2 % (37.0-47.0); HEMOGLOBIN 9.5 gm/dL (12.0-15.0); MCH 33.8 pg (26.0-34.0); MCHC 34.8 g/dL (28.0-37.0); MCV 97.3 fL (80.0-100.0); MPV 8.5 fl. (7.2-11.1); RBC 2.8 mil/uL (4.20-5.00); RDW-CV 13.4 % (10.5-14.5); WBC 5.4 thou/uL (4.0-11.0)
[2019-12-03 07:00] VITALS: BP 101/60; BP 143/61
[2019-12-03 07:05] VITALS: BP 139/59
[2019-12-03 14:01] VITALS: BP 139/59
[2019-12-03] MEDS ORDERED: LIPITOR40 MG PO ×2 (14:06)
[2019-12-03] MEDS ORDERED: CHILDREN'S ASPI81 M1 PO ×2 (14:06)
[2019-12-03] MEDS ORDERED: SINEMET 25-1001 EAC1 PO ×2 (14:06)
[2019-12-03] MEDS ORDERED: TYLENOL EXTRA500 MG PO ×2 (14:06)
[2019-12-03] MEDS ORDERED: REQUIP 1 MG TABL1 M1 PO ×2 (14:06)
[2019-12-03] MEDS ORDERED: NORVASC5 MG PO ×2 (14:06)
[2019-12-03] MEDS ORDERED: PLAVIX 75 MG TA75 MG PO ×2 (14:06)
[2019-12-03] MEDS ORDERED: FLORINEF ACETA0.1 MG PO ×2 (14:06)
[2019-12-03] MEDS ORDERED: LIDOPATCH1 EACH TOP ×2 (14:06)
[2019-12-03] MEDS ORDERED: NITROGLYCERIN0.4 MG SUBLING ×2 (14:06)
[2019-12-03] MEDS ORDERED: AKWA TEARS EYE15 ML OPHTHALMIC ×2 (14:06)
[2019-12-03 14:38] VITALS: BP 139/59
== END 2019-12-03 15:00 | disposition home health service (06) | DRG 57 ==
LOC: M.REH 15:45
PROVIDERS: ADMIT Physical Medicine & Rehabilitation; ATTEND Physical Medicine & Rehabilitation
DX: G20 Parkinson's disease (principal); N39.0 Urinary tract infection, site not specified; R53.81 Other malaise; I95.1 Orthostatic hypotension; I25.10 Atherosclerotic heart disease of native coronary artery without angina pectoris; I10 Essential (primary) hypertension; D64.9 Anemia, unspecified; M54.5 Low back pain; E89.0 Postprocedural hypothyroidism; Z90.11 Acquired absence of right breast and nipple; Z79.899 Other long term (current) drug therapy

== ENCOUNTER 2019-12-04 16:39 | Emergency (ER) | payer MEDICARE, BC ==
[~2019-12-04] VITALS: Ht 160 cm; Wt 74.4 kg
[~2019-12-04 16:39] MED LIST changes: +AKWA TEARS EYE15 ML OPHTHALMIC; +CHILDREN'S ASPI81 M1 PO; +FLORINEF ACETA0.1 MG PO; +LIDOPATCH1 EACH TOP; +REQUIP 1 MG TABL1 M1 PO; +SINEMET 25-1001 EAC1 PO
[2019-12-04 17:32] LABS: ABSOLUTE BASOPHILS 0.1 thou/uL (0.0-0.2); ABSOLUTE EOSINOPHILS 0.1 thou/uL (0.0-0.7); ABSOLUTE LYMPHOCYTES 1.4 thou/uL (0.8-5.3); ABSOLUTE MONOCYTES 0.5 thou/uL (0.0-1.2); ABSOLUTE NEUTROPHILS 3.9 thou/uL (1.6-8.1); BASOPHILS 0.9 %; EOSINOPHILS 2.4 %; HEMATOCRIT 32.9 % (37.0-47.0); HEMOGLOBIN 11.5 gm/dL (12.0-15.0); LYMPHOCYTES 23.4 %; MCH 33.9 pg (26.0-34.0); MCV 97.1 fL (80.0-100.0); MONOCYTES 8.3 %; MPV 8.4 fl. (7.2-11.1); NUCLEATED RBCS 0 /100WBC; PLATELET COUNT* 211 thou/uL (150-400); RBC 3.39 mil/uL (4.20-5.00); RDW-CV 13.4 % (10.5-14.5); WBC 5.9 thou/uL (4.0-11.0)
[2019-12-04 17:41] LABS: CALCIUM 10.1 mg/dL (8.5-10.1); CREATININE 1.3 mg/dL (0.6-1.3); POTASSIUM 4.9 mmol/L (3.5-5.1)
[2019-12-04 17:45] LABS: TOTAL BILIRUBIN 0.4 mg/dL (<0.1-1.0); TOTAL PROTEIN 7.6 g/dL (6.4-8.2)
[2019-12-04 18:57] VITALS: BP 158/76
--- NOTE | 2019-12-05 13:52 | EKG ---
[place] [address] ELECTROCARDIOGRAM REPORT Name: JACIEL FLORES Room: [facility]#: [id number] Admission: 12/04/19 Attend Phys: Discharge: 12/04/19 Date of : 40 Date of Service: 12/04/19 1651 Report #: [id number] THIS REPORT FOR: //name// [facility] ED Test Date: 2019-12-04 Test Time: 16:51:40 Pat Name: JACIEL FLORES Department: Room: Gender: Director: SAMARIA : 1940 Requested By: Javy Souza Order Number: [id number] MD: Pedro Friedman Measurements Intervals [place] Rate: 85 P: 62 [place]: 214 QRS: -44 QRSD: 116 T: 54 QT: 381 QTc: 453 Interpretive Statements Sinus rhythm Borderline prolonged [place] interval Left anterior fascicular block Compared to ECG 11/13/2019 12:35:22 Left anterior fascicular block persists Left ventricular hypertrophy no longer present Early repolarization no longer present Electronically Signed On 12-05-2019 13:52:14 CDT by Pedro Friedman [email or web address] <ELECTRONICALLY SIGNED> By: Pedro Friedman MD, FACC 12/05/19 1352 1651 1651 Pedro Friedman MD, FAC /EPI
== END 2019-12-04 18:58 | disposition home or self-care (01) ==
LOC: M.ERS 16:39
PROVIDERS: Emergency Medicine Emergency Medical Services
DX: I10 Essential (primary) hypertension (principal); I25.10 Atherosclerotic heart disease of native coronary artery without angina pectoris; Z90.11 Acquired absence of right breast and nipple; Z90.49 Acquired absence of other specified parts of digestive tract

== ENCOUNTER 2020-06-13 14:36 | Emergency (ER) | payer MEDICARE, BC ==
[~2020-06-13] VITALS: Ht 157.5 cm; Wt 73.5 kg
[2020-06-13] MEDS ORDERED: ATENOLOL 25 MG25 M1 PO (15:14)
[2020-06-13] MEDS ORDERED: PRED FORTE 1% EY5 M1 OPHTHALMIC (15:15)
[2020-06-13] MEDS ORDERED: [UNRECOGNIZED DRUG - OTHER] OPHTHALMIC (15:16)
[2020-06-13 15:27] LABS: ABSOLUTE BASOPHILS 0.1 thou/uL (0.0-0.2); ABSOLUTE EOSINOPHILS 0.2 thou/uL (0.0-0.7); ABSOLUTE LYMPHOCYTES 1.5 thou/uL (0.8-5.3); ABSOLUTE MONOCYTES 0.5 thou/uL (0.0-1.2); ABSOLUTE NEUTROPHILS 4.1 thou/uL (1.6-8.1); BASOPHILS 1.3 %; EOSINOPHILS 2.6 %; HEMATOCRIT 33.5 % (37.0-47.0); HEMOGLOBIN 11.2 gm/dL (12.0-15.0); LYMPHOCYTES 23.1 %; MCH 31.6 pg (26.0-34.0); MCHC 33.3 g/dL (28.0-37.0); MCV 94.9 fL (80.0-100.0); MONOCYTES 8.2 %; MPV 9.1 fl. (7.2-11.1); NUCLEATED RBCS 0 /100WBC; PLATELET COUNT* 173 thou/uL (150-400); POLYS 64.8 %; RBC 3.53 mil/uL (4.20-5.00); RDW-CV 13.9 % (10.5-14.5); WBC 6.4 thou/uL (4.0-11.0)
[2020-06-13 15:35] LABS: CALCIUM 9.2 mg/dL (8.5-10.1); CREATININE 0.9 mg/dL (0.6-1.3); POTASSIUM 3.6 mmol/L (3.5-5.1)
[2020-06-13 15:40] LABS: ALBUMIN 3.7 g/dL (3.4-5.0); TOTAL BILIRUBIN 0.4 mg/dL (<0.1-1.0)
[2020-06-13 16:09] LABS: URINE BILIRUBIN NEGATIVE (Negative); URINE BLOOD 1+ (Negative); URINE CLARITY CLEAR; URINE COLOR YELLOW; URINE GLUCOSE-RANDOM NEGATIVE (Negative); URINE KETONES NEGATIVE (Negative); URINE LEUKOCYTES NEGATIVE (Negative); URINE NITRITE NEGATIVE (Negative); URINE PROTEIN NEGATIVE (Negative); URINE SPECIFIC GRAVITY 1.015 (1.005-1.030); URINE UROBILINOGEN 0.2 E.U./dl (0.2-1.0)
[2020-06-13 16:15] LABS: MUCUS None Seen strn/LPF (None Seen); SQUAMOUS 0-3 Few /LPF (0-3)
[2020-06-13] MEDS ORDERED: KEFLEX500 M1 PO (16:15)
[2020-06-13 16:16] LABS: CASTS None Seen /LPF (None Seen); CRYSTALS None Seen /LPF (None Seen); URINE RBC 0-2 Rare /HPF (0-2)
[2020-06-13 16:17] LABS: BACTERIA None Seen /HPF (None Seen); URINE WBC 0-5 Rare /HPF (0-5)
[2020-06-13 16:39] VITALS: BP 201/88
--- NOTE | 2020-06-14 11:16 | EKG ---
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: : 1940 Requested By: Kendall Hernandez Order Number: [id number] MD: Chace Dacosta Measurements Intervals [place] Rate: 60 P: 52 [place]: 215 QRS: -46 QRSD: 120 T: 47 QT: 427 QTc: 427 Interpretive Statements Sinus rhythm Borderline prolonged [place] interval Left anterior fascicular block Left ventricular hypertrophy Compared to ECG 12/04/2019 16:51:40 no change Electronically Signed On 06-14-2020 11:16:03 CDT by Chace Dacosta [email or web address] <ELECTRONICALLY SIGNED> By: Chace Dacosta MD, FAC 06/14/20 1116 1506 1506 Chace Dacosta MD, [facility] /EPI
== END 2020-06-13 16:40 | disposition home or self-care (01) ==
LOC: M.ERS 14:36
PROVIDERS: Emergency Medicine
DX: I10 Essential (primary) hypertension (principal); G20 Parkinson's disease; I25.10 Atherosclerotic heart disease of native coronary artery without angina pectoris; E89.0 Postprocedural hypothyroidism; Z88.5 Allergy status to narcotic agent; Z88.6 Allergy status to analgesic agent; Z90.49 Acquired absence of other specified parts of digestive tract; Z90.89 Acquired absence of other organs

== ENCOUNTER 2020-07-02 07:45 | Inpatient (IN) | payer MEDICARE, BC ==
[~2020-07-02] VITALS: Ht 160 cm; Wt 69.9 kg
--- NOTE | ~2020-07-02 | EMS ---
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 [facility] 310 en route at time [address] [address] EMS Patient Care Report Name: JACIEL FLORES Room: [facility] RAYRAY Rivera#: [id number] Admission: 07/02/20 Attend Phys: Discharge: Date of : 40 Report #: [id number] noted. Arrived and found IFD with the patient in her bed room. Patient was alert and oriented, laying in bed. IFD stated the patient was complaining of shortness of breath that started at 0630. Patient has no lung problems history and appeared to be breathing easily and at a normal rate. Patient had no obvious pedal edema noted and lung sounds where clear upon auscultation. Patients family stated this had never happened before and the patient would prefer to go to [facility]. Patient agreed and was move to a stair chair. Patient was weak on her feet and normally uses a walker. Patient was then taken to stretcher and buckled in with same movement maneuver. Once in ambulance, vitals where taken as noted. Patient was hypertensive as noted. IV attempted with no success, blood glucose and 12 lead ECG obtained. Patient stated she was feeling better now. While en route, vitals where taken again and no major changes where noted. Radio report was given and patient had no further complaints. Arrived and took patient to room 10. Patient was moved to bed and RN was given verbal report. RN signed for patient care and patient signed for self. END REPORT EMT-P Flako Banks Initial Vitals @07:21SpO2: 99, @07:26SpO2: 98, @07:28SpO2: 99, @07:30SpO2: 99, @07:36SpO2: 96, @07:19 @07:28P: 65,R: 14,BP: 218/103, @07:30P: 64,R: 16,BP: 233/112, @07:40P: 64,R: 16,BP: 235/94, @07:28GCS: 15, @07:30GCS: 15, @07:40GCS: 15, @07:08 @07:25Glucose: 108, Assessments @07:08MENTAL:SKIN:HEENT:LUNG SOUNDS:ABDOMEN:PELVIS//GI:EXTREMITIES:PULSE:NEURO: Impression Acute Respiratory Distress (Dyspnea) Procedures @07:23 cc () Site: Antecubital-LeftResponse: UnchangedFailed@07:23 cc () Site: Antecubital-LeftResponse: UnchangedFailed@07:1912-Lead ECGResponse: [place] [address] EMS Patient Care Report Name: JACIEL FLORES Room: [facility] Nicole#: [id number] Admission: 07/02/20 Attend Phys: Discharge: Date of : 40 Report #: [id number] 07:01,Call Received 07:01,Dispatch Notified 07:01,Psap Call 07:01,Dispatched 07:01,En Route 07:07,On Scene 07:08,At Patient 07:08,BP: / M,PULSE: ,RR: R,SPO2: Ox,ETCO2: ,BG: ,PAIN: ,GCS: , 07:19,12-Lead ECG,Response: UnchangedSucceeded, 07:19,BP: / M,PULSE: ,RR: R,SPO2: Ox,ETCO2: ,BG: ,PAIN: ,GCS: , 07:21,BP: / M,PULSE: ,RR: R,SPO2: 99 Ox,ETCO2: ,BG: ,PAIN: ,GCS: , 07:23, cc Site: Antecubital-Left,Response: UnchangedFailed, 07:23, cc Site: Antecubital-Left,Response: UnchangedFailed, 07:25,Depart Scene 07:25,BP: / M,PULSE: ,RR: R,SPO2: Ox,ETCO2: ,B,PAIN: ,GCS: , 07:26,BP: / M,PULSE: ,RR: R,SPO2: 98 Ox,ETCO2: ,BG: ,PAIN: ,GCS: , 07:28,BP: / M,PULSE: ,RR: R,SPO2: 99 Ox,ETCO2: ,BG: ,PAIN: ,GCS: , 07:28,BP: 218/103 M,PULSE: 65,RR: 14 R,SPO2: Ox,ETCO2: ,BG: ,PAIN: ,GCS: , 07:28,BP: / M,PULSE: ,RR: R,SPO2: Ox,ETCO2: ,BG: ,PAIN: ,GCS: 15, 07:30,BP: / M,PULSE: ,RR: R,SPO2: 99 Ox,ETCO2: ,BG: ,PAIN: ,GCS: , 07:30,BP: 233/112 M,PULSE: 64,RR: 16 R,SPO2: Ox,ETCO2: ,BG: ,PAIN: ,GCS: , 07:30,BP: / M,PULSE: ,RR: R,SPO2: Ox,ETCO2: ,BG: ,PAIN: ,GCS: 15, 07:36,BP: / M,PULSE: ,RR: R,SPO2: 96 Ox,ETCO2: ,BG: ,PAIN: ,GCS: , 07:40,BP: 235/94 M,PULSE: 64,RR: 16 R,SPO2: Ox,ETCO2: ,BG: ,PAIN: ,GCS: , 07:40,BP: / M,PULSE: ,RR: R,SPO2: Ox,ETCO2: ,BG: ,PAIN: ,GCS: 15, 07:43,At Destination 07:56,Call Closed Disclaimer v1.1 Copyright 2020 [email or web address] This EMS Care Summary contains data elements from the applicable legal record (which may be displayed differently). It is designed to provide pertinent information for the following purposes: continuity of care, clinical quality, and state data reporting. The complete legal record is available to ED staff and administrators of the receiving hospital in [employer] Patient Tracker. All data is provided "as is."
[~2020-07-02 07:45] MED LIST changes: +KEFLEX500 M1 PO; +PRED FORTE 1% EY5 M1 OPHTHALMIC; +[UNRECOGNIZED DRUG - OTHER] OPHTHALMIC
[2020-07-02 07:46] VITALS: BP 222/111
[2020-07-02] MEDS ORDERED: COLACE100 MG PO (07:56)
[2020-07-02] MEDS ORDERED: PEPCID AC10 MG PO (07:56)
[2020-07-02 08:22] LABS: ABSOLUTE BASOPHILS 0.1 thou/uL (0.0-0.2); ABSOLUTE EOSINOPHILS 0.2 thou/uL (0.0-0.7); ABSOLUTE LYMPHOCYTES 1.4 thou/uL (0.8-5.3); ABSOLUTE MONOCYTES 0.3 thou/uL (0.0-1.2); ABSOLUTE NEUTROPHILS 3.7 thou/uL (1.6-8.1); BASOPHILS 1.3 %; EOSINOPHILS 2.8 %; HEMATOCRIT 39.3 % (37.0-47.0); HEMOGLOBIN 12.9 gm/dL (12.0-15.0); LYMPHOCYTES 24.7 %; MCH 31.2 pg (26.0-34.0); MCV 94.7 fL (80.0-100.0); MONOCYTES 6.1 %; MPV 9.1 fl. (7.2-11.1); NUCLEATED RBCS 0 /100WBC; PLATELET COUNT* 182 thou/uL (150-400); POLYS 65.1 %; RBC 4.15 mil/uL (4.20-5.00); RDW-CV 13.9 % (10.5-14.5); WBC 5.7 thou/uL (4.0-11.0)
[2020-07-02 08:33] LABS: CALCIUM 9.7 mg/dL (8.5-10.1); CREATININE 1.1 mg/dL (0.6-1.3); POTASSIUM 3.5 mmol/L (3.5-5.1)
[2020-07-02 08:43] LABS: ALBUMIN 4.1 g/dL (3.4-5.0); TOTAL BILIRUBIN 0.6 mg/dL (<0.1-1.0); TOTAL PROTEIN 7.5 g/dL (6.4-8.2)
[2020-07-02 09:06] LABS: URINE BILIRUBIN NEGATIVE (Negative); URINE BLOOD 1+ (Negative); URINE CLARITY CLEAR; URINE COLOR YELLOW; URINE GLUCOSE-RANDOM NEGATIVE (Negative); URINE KETONES NEGATIVE (Negative); URINE LEUKOCYTES-REFLEX NEGATIVE (Negative); URINE NITRITE-REFLEX NEGATIVE (Negative); URINE PROTEIN NEGATIVE (Negative); URINE UROBILINOGEN 0.2 E.U./dl (0.2-1.0)
[2020-07-02 09:18] LABS: BACTERIA-REFLEX 1-9 Few /HPF (None Seen); CASTS None Seen /LPF (None Seen); CRYSTALS None Seen /LPF (None Seen); MUCUS None Seen strn/LPF (None Seen); SQUAMOUS NONE SEEN /LPF (0-3); URINE RBC 0-2 Rare /HPF (0-2); URINE WBC-REFLEX None Seen /HPF (0-5)
--- NOTE | 2020-07-02 11:11 | EKG ---
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 : 1940 Requested By: Javy Souza Order Number: [id number] MD: Chace Dacosta Measurements Intervals [place] Rate: 68 P: 33 [place]: 204 QRS: -51 QRSD: 121 T: 57 QT: 397 QTc: 423 Interpretive Statements Sinus rhythm left anterior fasicular block Ventricular premature complex LVH with IVCD, LAD and secondary repol abnrm Compared to ECG 06/13/2020 15:06:04 Ventricular premature complex(es) now present Electronically Signed On 07-02-2020 11:11:00 CDT by Chace Dacosta [email or web address] <ELECTRONICALLY SIGNED> By: Chace Dacosta MD, FACC 07/02/20 1111 0752 0752 Chace Dacosta MD, FAC /EPI
[2020-07-02 14:30] VITALS: BP 149/62
--- NOTE | 2020-07-02 14:53 | EKG ---
[place] [address] ELECTROCARDIOGRAM REPORT Name: JACIEL FLORES Room: [address] M.R.#: [id number] Admission: 07/02/20 Attend Phys: Nancy Aquino MD Discharge: Date of : 40 Date of Service: 07/02/2027 Report #: [id number] THIS REPORT FOR: //name// [facility] ED Test Date: 2020-07-02 Test Time: 09:27:36 Pat Name: JACIEL FLORES Department: Room: [place] [address] Gender: F Printing Technician: TP : 1940 Requested By: Javy Souza Order Number: [id number] MD: Chace Dacosta Measurements Intervals [place] Rate: 70 P: -3 [place]: 213 QRS: -48 QRSD: 113 T: 48 QT: 400 QTc: 432 Interpretive Statements Sinus rhythm Borderline prolonged [place] interval Left anterior fascicular block Abnormal R-wave progression, late transition Left ventricular hypertrophy with repolarization changes Baseline wander in lead(s) V4 Compared to ECG 07/02/2020 07:52:42 Ventricular premature complex(es) no longer present Electronically Signed On 07-02-2020 14:53:48 CDT by Chace Dacosta [email or web address] <ELECTRONICALLY SIGNED> By: Chace Dacosta MD, [facility] 07/02/20 1453 6 6 Chace Dacosta MD, [facility] /EPI
[2020-07-02 15:55] VITALS: BP 149/62
[2020-07-02 16:22] VITALS: BP 190/76
[2020-07-02] MEDS ORDERED: PREDNISOLONE ACE5 ML RT. EYE (16:38)
[2020-07-02] MEDS ORDERED: TENORMIN25 MG PO (16:44)
[2020-07-02] MEDS ORDERED: SINEMET 25-1001 EAC1 PO (16:46)
[2020-07-02 20:00] VITALS: BP 128/55
[2020-07-03] VITALS (8 sets, daily range): BP systolic 83–150; BP diastolic 35–62
[2020-07-03 04:46] LABS: HEMATOCRIT 35.1 % (37.0-47.0); HEMOGLOBIN 11.8 gm/dL (12.0-15.0); MCH 31.6 pg (26.0-34.0); MCHC 33.6 g/dL (28.0-37.0); MCV 94.2 fL (80.0-100.0); MPV 9.3 fl. (7.2-11.1); RBC 3.73 mil/uL (4.20-5.00); RDW-CV 13.9 % (10.5-14.5); WBC 7.7 thou/uL (4.0-11.0)
[2020-07-03 04:50] LABS: CALCIUM 9.8 mg/dL (8.5-10.1); CREATININE 1.3 mg/dL (0.6-1.3); POTASSIUM 3.5 mmol/L (3.5-5.1)
[2020-07-04] VITALS (7 sets, daily range): BP systolic 90–136; BP diastolic 42–67
[2020-07-04 03:59] LABS: HEMATOCRIT 34.7 % (37.0-47.0); HEMOGLOBIN 11.6 gm/dL (12.0-15.0); MCH 31.6 pg (26.0-34.0); MCHC 33.3 g/dL (28.0-37.0); MCV 94.9 fL (80.0-100.0); MPV 9.2 fl. (7.2-11.1); RBC 3.66 mil/uL (4.20-5.00); RDW-CV 13.9 % (10.5-14.5); WBC 8.2 thou/uL (4.0-11.0)
[2020-07-04 04:11] LABS: CALCIUM 9.6 mg/dL (8.5-10.1); CREATININE 1.6 mg/dL (0.6-1.3); POTASSIUM 3.5 mmol/L (3.5-5.1)
[2020-07-04] MEDS ORDERED: FLORINEF ACETA0.1 MG PO (06:57)
[2020-07-05 03:54] VITALS: BP 130/54
[2020-07-05 05:06] LABS: CALCIUM 9.1 mg/dL (8.5-10.1); CREATININE 1.6 mg/dL (0.6-1.3); POTASSIUM 3.6 mmol/L (3.5-5.1)
[2020-07-05 08:21] VITALS: BP 141/55
[2020-07-05 09:00] VITALS: BP 138/63
[2020-07-05 12:00] VITALS: BP 138/63
[2020-07-05 14:08] VITALS: BP 138/63
[2020-07-05 16:00] VITALS: BP 154/79
[2020-07-06] VITALS (7 sets, daily range): BP systolic 140–194; BP diastolic 50–77
[2020-07-06 04:04] LABS: HEMATOCRIT 33.8 % (37.0-47.0); HEMOGLOBIN 11.1 gm/dL (12.0-15.0); MCH 31.1 pg (26.0-34.0); MCHC 32.9 g/dL (28.0-37.0); MCV 94.6 fL (80.0-100.0); MPV 9.3 fl. (7.2-11.1); RBC 3.57 mil/uL (4.20-5.00); RDW-CV 13.9 % (10.5-14.5); WBC 8.4 thou/uL (4.0-11.0)
[2020-07-06 04:24] LABS: CREATININE 1.2 mg/dL (0.6-1.3)
--- NOTE | 2020-07-06 17:24 | CON ---
[address] [address] CONSULTATION Name: JACIEL FLORES Room: [address] IN M.R.#: [id number] Admission: 07/02/20 Attend Phys: Nancy Aquino MD Discharge: 07/06/20 Date of : 40 Report #: [id number] THIS REPORT FOR: cc: Marshall Salvador MD, Christopher B. MD Blick, David R. MD [facility] ~ DOC #: [id number] cc: MD Chace Vogel MD [facility] DATE OF CONSULTATION: 07/02/2020 CARDIOLOGY CONSULTATION HISTORY OF PRESENT ILLNESS: The patient is a 79-year-old white female who I was asked to see in the emergency room today after she felt lightheaded. The patient has a long history of Parkinson's. In 01/2019, Dr. Friedman placed a coronary stent after she complained to being short of breath. She is not very active at this time and uses a walker. She recently saw Dr. Salvador a week ago. She has a history of orthostatic hypotension. Since she was doing well, he actually discontinue the Florinef a week ago. She then saw my partner, Dr. Friedman, yesterday in the cardiology clinic. He recommended a nuclear stress test to look for ischemia following the stent placement. However, this morning, the patient was lying in bed, she felt lightheaded. Her blood pressure at that time was over 200. She did complain of some shortness of breath. Ambulance was called and she was brought here to [place] for further evaluation and treatment. She denies any chest pain, fever, cough, bleeding, vomiting, or diarrhea. PAST SURGICAL HISTORY: Tonsillectomy, thyroid surgery, mastectomy for breast cancer followed by chemotherapy, cataract extraction, and back surgery. MEDICATIONS: Include aspirin, Plavix, Sinemet, atenolol, and Lipitor. ALLERGIES: SHE HAS AN ALLERGY TO AN ANTIBIOTIC SHE IS NOT AWARE OF AT THIS TIME. FAMILY HISTORY: Her mom had high blood pressure. SOCIAL HISTORY: She is . She and her live in [place]. No smoking or alcohol abuse. REVIEW OF SYSTEMS: She apparently had a TIA in the past. No history of asthma, liver disease, kidney disease, chronic skin condition, [place] [address] CONSULTATION Name: JACIEL FLORES Room: [address]#: [id number] Admission: 07/02/20 Attend Phys: Nancy Aquino MD Discharge: 07/06/20 Date of : 40 Report #: [id number] PHYSICAL EXAMINATION: GENERAL: Revealed an elderly, frail-appearing female, lying in bed. She appeared in no distress. Her eyes were closed. VITAL SIGNS: Her blood pressure is 190/80, pulse 70. She is afebrile. HEENT: She was anicteric. Conjunctivae are pink. Mucous membranes moist. NECK: Does not appear distended. No carotid bruits. CHEST: Clear to auscultation. CARDIAC: Regular rate and rhythm without murmur. ABDOMEN: Soft. EXTREMITIES: No pitting edema. SKIN: Cool and dry. NEUROLOGIC: Nonfocal. INVESTIGATIONS: Her ECG showed a sinus rhythm, left anterior fascicular block, no significant ST or T-wave changes noted. She had an echocardiogram done last November that showed ejection fraction of 60% with left atrial enlargement. Her workup in the emergency room today, she had chest x-ray that showed some atelectasis, otherwise unremarkable. LABORATORY WORK: Sodium 141, creatinine 1.1, and troponin 0.06. BNP 536. Her TSH last September was 1.7. White blood cell count 5.7 and hemoglobin 12.9. COVID antigen stat test was negative. Urinalysis was negative for leukocytes. IMPRESSION AND RECOMMENDATIONS: 1. 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 2. Hypertension. The patient has been on a beta-dayanna. 3. Parkinson disease. The patient is on Sinemet. 4. Coronary artery disease. Previous stent. The patient is on Plavix. I would not recommend stress testing at this time. 5. History of breast cancer. Chace Dacosta MD [facility] ANICETO/PEREZ/AURELIANO <ELECTRONICALLY SIGNED> By: Chace Dacosta MD, [facility] 07/06/20 1724 [id number] Dacosta MD, [facility] /nt
== END 2020-07-06 13:50 | disposition home health service (06) | DRG 304 ==
LOC: M.ERS 07:45 → M.TBA-ER 09:19 → M.2W 16:01
PROVIDERS: Emergency Medicine Emergency Medical Services; Internal Medicine; ADMIT Family Medicine; ATTEND Family Medicine
DX: I16.0 Hypertensive urgency (principal); N17.0 Acute kidney failure with tubular necrosis; I24.9 Acute ischemic heart disease, unspecified; I10 Essential (primary) hypertension; I25.10 Atherosclerotic heart disease of native coronary artery without angina pectoris; G20 Parkinson's disease; E03.9 Hypothyroidism, unspecified; R10.31 Right lower quadrant pain; I95.1 Orthostatic hypotension; F41.9 Anxiety disorder, unspecified; Z20.822 Contact with and (suspected) exposure to COVID-19; Z90.49 Acquired absence of other specified parts of digestive tract; Z90.11 Acquired absence of right breast and nipple; Z79.82 Long term (current) use of aspirin; Z79.01 Long term (current) use of anticoagulants; Z79.899 Other long term (current) drug therapy; Z88.8 Allergy status to other drugs, medicaments and biological substances; Z88.5 Allergy status to narcotic agent; Z98.49 Cataract extraction status, unspecified eye; Z85.3 Personal history of malignant neoplasm of breast; Z95.5 Presence of coronary angioplasty implant and graft

== ENCOUNTER → 2020-12-10 | Outpatient (CLI) | payer MEDICARE, BC ==
[~2020-12-10] MED LIST changes: +COLACE100 MG PO; +PEPCID AC10 MG PO; +PREDNISOLONE ACE5 ML RT. EYE; +TENORMIN25 MG PO
--- NOTE | 2020-12-10 16:48 | CARDNUC ---
[place] [address] CARDIAC NUCLEAR IMAGING REPORT Name: JACIEL FLORES Room: [facility]#: [id number] Admission: 12/10/20 Attend Phys: Giacomo Vega Discharge: Date of : 40 Date of Service: 12/10/20 1648 Report #: [id number] THIS REPORT FOR: cc: Marshall Salvador MD, Christopher B. MD Liston, Michael J. MD [facility] ~ APPROVED REPORT Imaging Protocol: Rest Tc-99m/Stress Tc-99m 1 day Study performed: 12/10/2020 12:45:00 Indication: routine Patient Location: Out-Patient Stress Tech: DULCE MCBRIDE Stress Nurse: Helena Wesley RN NM Tech:JAELYN Amor Ht: 5 ft 2 in Wt: 164 lbs BSA: 1.76 m2 BMI: 29.99 Medical History Medical History: CAD s/p stent, HTN, Stroke/TIA, parkinsons Medications: atenolol, clopidogrel, ntg Allergies: empirin Cardiac Risk Factors: Age, DM Previous Cardiac Procedures: PCI Exercise History: Sedentary Meds Held (24 hrs): atenolol Resting Data Rest SPECT myocardial perfusion imaging was performed in supine position 30 minutes following the intravenous injection of 10.9 mCi of Tc-99m Sestamibi. Time of rest injection: 1315 Date: 12/10/2020 The images were gated to evaluate regional wall motion and calculate left ventricular ejection fraction. Administration Route: IV Administration Site: Left Hand Pharmacologic Stress Pharmacologic stress test was performed by injecting Regadenoson 0.4 mg IV push over 10-15 seconds immediately followed by the intravenous injection of 26.4 mCi of Tc-99m [place] [address] CARDIAC NUCLEAR IMAGING REPORT Name: JACIEL FLORES Room: [facility] ADRI[facility]N [place]#: [id number] Admission: 12/10/20 Attend Phys: Giacomo Vega Discharge: Date of : 40 Date of Service: 12/10/20 1648 Report #: [id number] Time of stress injection: 1435 Date: 12/10/2020 Administration Route: IV Administration Site: Left Hand Gated Stress SPECT was performed 40 minutes after stress injection. The images were gated to evaluate regional wall motion and calculate left ventricular ejection fraction. Stress only was performed in the Supine position. Stress Test Details Stress Test: Pharmacologic stress testing performed using 0.4 mg of regadenoson per 5 mL given IV over 10 seconds. Reason for pharmacologic stress test: physical limitation. HR Max Heart Rate (APMHR): 140 bpm Resting HR: 70 bpm Target HR (85% APMHR): 119 bpm Max HR Achieved: 100 bpm % of APMHR: 71 Recovery HR: 88 bpm BP Resting BP: 171/105 mmHg Max BP: 98/66 mmHg Recovery BP: 128/64 mmHg ECG Resting ECG: Sinus Rhythm Stress ECG: Sinus Rhythm ST Change: None Arrhythmia: None Recovery ECG: Sinus Rhythm Recovery ST Change: None Recovery Arrhythmia: None Clinical Reason for Termination: Completed protocol The patient tolerated Lexiscan infusion without significant cardiac symptoms. Nurse Comments patient has parkinsons and cannot walk on treadmill Stress ECG Conclusion The baseline EKG shows sinus rhythm without significant ST segment or T wave abnormality. EKGs obtained during and post Lexiscan infusion show sinus rhythm with no significant ST segment or T wave changes when compared to baseline. There were no significant [place] [address] CARDIAC NUCLEAR IMAGING REPORT Name: JACIEL FLORES Room: [facility]#: [id number] Admission: 12/10/20 Attend Phys: Giacomo Vega Discharge: Date of : 40 Date of Service: 12/10/20 1648 Report #: [id number] arrhythmias. Study Quality Study: Good Artifact: No artifact Study Data At rest, the left ventricular ejection fraction was 70%.. Post stress, the left ventricular ejection was 73%.. TID = 0.88. Perfusion Perfusion images obtained at rest and post Lexiscan stress show uniform uptake of the radioisotope throughout the myocardium. There were no defects to suggest infarct or ischemia. Wall Motion Normal left ventricular wall motion. Nuclear Conclusion ECG Findings: negative for ischemia Clinical Findings: negative for ischemia Nuclear Findings: negative for ischemia Exercise Capacity: not assessed Left Ventricular Function: normal Risk Study: low Perfusion images show no defect to suggest infarct or ischemia. Left ventricular systolic function appears normal on gated studies. This is a low risk study. <Conclusion> The baseline EKG shows sinus rhythm without significant ST segment or T wave abnormality. EKGs obtained during and post Lexiscan infusion show sinus rhythm with no significant ST segment or T wave changes when compared to baseline. There were no significant stress-induced arrhythmias. <ELECTRONICALLY SIGNED> By: Laz Newby MD, FACC 12/10/201647 47 47 Laz Newby MD, FACC /INF
== END ==
LOC: M.NUC 12:34
PROVIDERS: ATTEND Internal Medicine
DX: I25.10 Atherosclerotic heart disease of native coronary artery without angina pectoris (principal); Z95.5 Presence of coronary angioplasty implant and graft